=== PATIENT | female | born 1955 | race African-American/Black ===

== ENCOUNTER 2025-01-06 09:40 | Emergency (ER) | payer OTHER, SELFPAY ==
--- OUTSIDE RECORDS SUMMARY | 2024-12-09 05:15 | XMS_ITS ---
Author Organization [facility] in [place] Address [address] [place] [address] Care Team Providers Care Engineer First Assistant Name Role Phone Brandy Moulton Primary Care Provider Allergies Allergen (clinical drug ingredient) Drug/Non Drug Allergy documented on EMR Reaction Allergy Type Onset Date Status aspirin Aspirin Stomach upset Drug Allergy Act kyaw sulfamethoxazole / trimethoprim Bactrim Nausea/vomitin g Drug Allergy Active REASON FOR VISIT 2 weeks Medications Medication SIG (Take, Route, Frequency, Duration) Notes Start Date End Date Status Proventil HFA 108 (90 Base) MCG/ACT 2 puffs Inhalation every 4 hrs prn cough/SOB prn Unknown buPROPion HCl ER (XL) 300 MG 1 tablet in the morning Orally Once a day for 30 days prn 08/16/2020 Unknown Extra Depth Diabetic Shoe -- as directed -- Daily for 365 days 2 units, A5500, DX E11.42 10/28/2019 Unknown Heat Molded Inserts -- as directed -- Daily for 365 days 6 units, A5512, DX: E11.42 10/28/2019 Unknown Ibuprofen 600 MG 1 tablet with food or milk as needed Orally TID prn pain for 90 days PRN 02/18/2019 Active Lidocaine 4 % 1 application as needed Externally Three times a day for 7 days Apply under left arm and to upper back TID prn pain 11/17/2024 Active metFORMIN HCl 500 MG Take 2 tablets by mouth twice daily Orally bid for 90 days Active Rosuvastatin Calcium 5 MG 1 tablet Orall y Once a day for 30 days 07/28/2024 Active Rybelsus 7 MG 1 tablet at least 30 minutes before first food, beverage or other oral medicine of the day Orally Once a day for 30 days 10/25/2024 Active hydroCHLOROthiazide 25 MG Take 1 tablet by mouth once daily for 90 Active Pregabalin 25 MG 1-2 capsules Orally nightly for [address] gabapentin 12/09/2024 Active Allopurinol 300 MG 1 tablet Orally Once a day for 90 days Active Gabapentin 100 MG 1 capsule Orally BID for 30 days Decreased dose - 300mg makes her too sleepy 11/17/2024 Active HYDROcodone-Acetaminophen 5-325 MG 1 tablet as needed Orally BID prn severe pain for 7 days 12/09/2024 Active tiZANidine HCl 4 MG 1/2-1 tab Orally Nightly as needed for pain prn 11/17/2019 Unknown Gentamicin Sulfate 0.3 % 1 drop into affected eye Ophthalmic 4 times daily for 5 days 12/09/2024 Active Social History Tobacco Use: Social History Observation Description Date Details (start date - stop date) Never Smoker NA - NA Tobacco Use/Smoking Question Answer Notes Patient is a nonsmoker Vital Signs Weight 210.6 lbs 12/09/2024 Height 62 in 12/09/2024 Blood pressure systolic 130 mm Hg 12/10/19 25 Blood pressure diastolic 78 mm Hg 025 Heart Rate 98 /min 12/09/2024 Respiratory Rate 16 /min 12/09/2024 BMI 38.52 kg/m2 12/09/2024 Oximetry 98 % 12/09/2024 Encounters Encounter Location Date Provider Diagnosis [facility] [address] [place] [address] 12/09/2024 Brandy Moulton Type 2 diabetes mellitus with hyperglycemia, without long-term current use of insulin E11.65 ; Zoster with other complications B02.8 and Hordeolum externum left lower eyelid H00.015 Assessments Encounter Date Diagnosis (ICD Code) Assessment Notes Treatment Notes Treatment Clinical Notes Section Notes 12/09/2024 Type 2 diabetes mellitus with hyperglycemia, without long-term current use of insulin (ICD-10 - E11.65) Continue with metformin and rybelsus 12/09/2024 Zoster with other complications (ICD-10 - B02.8) Switch to lyrica since not feeling well with the gabapentin Will also provide a few more norco, to use mainly at night Continue other topicals 12/09/2024 Hordeolum externum left lower eyelid (ICD-10 - H00.015) garamycin drops, warm compresses Plan Of Treatment Medication Medication Name Sig Start Date Stop Date Notes Pregabalin 25 MG 1-2 capsules Orally nightly for 30 days 12/09/[address] gabapentin HYDROcodone-Acetaminop hen 5-325 MG 1 tablet as needed Orally BID prn severe pain for 7 days 12/09/2024 Gentamicin Sulfate 0.3 % 1 drop into affected eye Ophthalmic 4 times daily for 5 days 12/09/2024 Treatment Notes Assessment Notes Type 2 diabetes mellitus wit h hyperglycemia, without long-term current use of insulin Continue with metformin and rybelsus Zoster with other complications Switch to lyrica since not feeling well with the gabapentin Will also provide a few more norco, to use mainly at night Continue other topicals Hordeolum externum left lower eyelid gar amycin drops, warm compresses Next Appt Details Follow Up: 2-3 weeks, Reason : PHN, DM Provider Name:Brandy Campbell es, 01/12/2025 09:45:00 AM, [facility] [place], [address], Progress Notes * Michaela MORALES GDOB: (69 yo F)Acc No.[id number]:12/09/2024 Progress Note Patient: Michaela RADER Provider: Josh Moulton MD :1955 A ge:69 Y S ex:Female Date:12/09/2024 Address:[address] [place], [place] [id number] Check In:09:06 AM ESTCheck O ut:10:31 AM EST Subjective: * Chief Complaints: * 2 weeks * HPI: G eneral: patient presents today for a 2 week f/u, patient states she is still having alot of pain and she still has the rash but she says it is getting better, she now has a sti on her left eye. - Here for 2 week follow up of shingles pain - rash is drying well, but she still has so much pain! Burning pain, pins and needles feeling, still wakes her up at night. The meds help a little. Tried a shingles cream, which has helped some. Still throbbing feeling under her left arm/armpit. Pain comes in waves Takes pain med (norco) only at night, but continues on the gabapentin, as well as tylenol and ibu She was able to work full days this week, but it was stressful. She is frustrated that she still has so much pain, and it is still so intense. This is the 6th week -she still does not like how the gabapentin makes her feel - even the 100mg rather than the 300. I encouraged her to take the 100mg at night Also she has a stye on left lower lid - DM - she does feel like the Rybelsus helps with her appetite, and she is down 2 pounds. * ROS: G eneral/Constitutional: Chills d enies. F atigue d enies. F ever d enies. H EENT: Nasal congestion d enies. S ore throat d enies.?Runny Nose D enies. E ar Pain D enies. C ardiovascular: Lower Extremity Edema d enies. C hest pain d enies.?Palpitations d enies. R espiratory: Cough d enies. S hortness of breath d enies. W heezing d enies. G astrointestinal: Abdominal pain d enies. C onstipation d enies. D iarrhea d enies. N ausea d enies. G enitourinary: Urgency d enies. F requent urination d enies. P ainful urination d enies. M usculoskeletal: Body aches D enies. P ainful joints d enies. W eakness d enies. S kin: Rash d enies. N eurologic: Dizziness d enies. H eadache d enies. ? P sychiatric: Depression d enies. A nxiety d enies. D ifficulty sleeping d enies. * Active Problem List E11.65 Type 2 diabetes shakila itus with hyperglycemia, without long-term current use of insulin Modified On:08/30/2023W/U Status:confirmed E11.42 Type 2 diabetes shakila itus with diabetic polyneuropathy Modified On:12/26/2021 Status:confirmed I10 Essential hypertensi on Modified On:08/30/2023 Status:confirmed E78.2 Mixed hyperlipidemia Modified On:08/30/2023 Status:confirmed M54.42 Acute left-sided low back pain with left-sided sciatica Modified On:07/19/2020 Status:confirmed Z68.41 BMI 40.0-44.9, adult Modified On:07/31/2019 Status:confirmed M10.9 Gout, unspecified Modified On:01/30/2023 Status:confirmed B35.1 Tinea unguium Modified On:07/19/2019 Status:confirmed M20.42 Other hammer toe(s) (acquired), left foot Modified On:07/19/2019 Status:confirmed M20.41 Other hammer toe(s) (acquired), right foot Modified On:07/19/2019 Status:confirmed M10.9 Gout of foot, unspec ified cause, unspecified chronicity, unspecified laterality Modified On:06/13/2021 Status:confirmed J32.0 Chronic maxillary si nusitis Modified On:11/06/2022 Status:confirmed M47.819 Arthritis of low arely k Modified On:08/30/2023 Status:confirmed M17.0 Arthritis of both kn ees Modified On:01/08/2021 Status:confirmed E11.42 Diabetic peripheral neuropathy Modified On:11/06/2022 Status:confirmed F32.9 Depression, unspecif ied depression type Modified On:01/08/2021 Status:confirmed F41.9 Anxiety Modified On:04/10/2022 Status:confirmed F41.8 Depression with anxi ety Modified On:11/06/2022 Status:confirmed J30.2 Seasonal allergic rh initis, unspecified trigger Modified On:09/12/2021U Status:confirmed K08.89 Odontalgia Modified On:12/26/2021 Status:confirmed G89.29 Other chronic pain Modified On:08/04/2022W/U Status:confirmed N28.89 Renal mass, left Modified On:01/30/2023U Status:confirmed G47.30 Sleep-disordered tiffanie athing Modified On:11/06/2022/U Status:confirmed E66.01 Morbid (severe) obes ity due to excess calories Modified On:08/30/2023U Status:confirmed * Medical History: * Surgical History: T ubal ligation I&D Lt upper eyelid 03/05/18 * Hospitalization/Major Diagno stic Procedure: c hild * Family History: F ather: . M other: , diagnosed with Other malignant neoplasm of unspecified site, Unspecified heart disease, Unspecified polyarthropathy or polyarthritis, pelvic region and thigh. B rother(s): diagnosed with Diabetes mellitus without mention of complication, type II or unspecified type, not stated as uncontrolled, Unspecified heart disease. S ister(s): diagnosed with Unspecified heart disease. 4 brother(s) , 4 sister(s) . . Mother - Diabetic, Kidney issues, Leukemia, arthritis, heart disease. * Social History: T obacco Use: T obacco Use/Smoking P atient is a n onsmoker * Medications: T akingAllopurinol 300 MG Tablet 1 tablet Orally Once a day Gabapentin 100 MG Capsule 1 capsule Orally BID , Notes to Pharmacist: Decreased dose - 300mg makes her too sleepyhydroCHLOROthiazide 25 MG Tablet Take 1 tablet by mouth once daily HYDROcodone-Acetaminophen 5-325 MG Tablet 1 tablet as needed Orally BID prn severe pain Ibuprofen 600 MG Tablet 1 tablet with food or milk as needed Orally TID prn pain , Notes to Pharmacist: PRNLidocaine 4 % Cream 1 application as needed Externally Three times a day , Notes to Pharmacist: Apply under left arm and to upper back TID prn painmetFORMIN HCl 500 MG Tablet Take 2 tablets by mouth twice daily Orally bid Rosuvastatin Calcium 5 MG Tablet 1 tablet Orally Once a day Rybelsus(Semaglutide) 7 MG Tablet 1 tablet at least 30 minutes before first food, beverage or other oral medicine of the day Orally Once a day Taking Allopurinol 300 MG Tablet 1 tablet Orally Once a day Taking Gabapentin 100 MG Capsule 1 capsule Orally BID , Notes to Pharmacist: Decreased dose - 300mg makes her too sleepyTaking hydroCHLOROthiazide 25 MG Tablet Take 1 tablet by mouth once daily Taking HYDROcodone-Acetaminophen 5- 325 MG Tablet 1 tablet as needed Orally BID prn severe pain Taking Ibuprofen 600 MG Tablet 1 tablet with food or milk as needed Orally TID prn pain , Notes to Pharmacist: PRNTaking Lidocaine 4 % Cream 1 application as needed Externally Three times a day , Notes to Pharmacist: Apply under left arm and to upper back TID prn painTaking metFORMIN HCl 500 MG Tablet Take 2 tablets by mouth twice daily Orally bid Taking Rosuvastatin Calcium 5 MG Tablet 1 tablet Orally Once a day Taking Rybelsus(Semaglutide) 7 MG Tablet 1 tablet at least 30 minutes before first food, beverage or other oral medicine of the day Orally Once a day DiscontinuedGabapentin 300 MG Capsule 1 capsule Orally BID Discontinued Gabapentin 300 MG Capsule 1 capsule Orally BID UnknownbuPROPion HCl ER (XL) 300 MG Tablet Extended Release 24 Hour 1 tablet in the morning Orally Once a day , Notes to Pharmacist: prnExtra Depth Diabetic Shoe -- -- as directed -- Daily , Notes to Pharmacist: 2 units, A5500, DX E11.42Heat Molded Inserts -- -- as directed -- Daily , Notes to Pharmacist: 6 units, A5512, DX: E11.42Proventil HFA 108 (90 Base) MCG/ACT Aerosol Solution 2 puffs Inhalation every 4 hrs prn cough/SOB , Notes to Pharmacist: prntiZANidine HCl 4 MG Tablet 1/2-1 tab Orally Nightly as needed for pain , Notes to Pharmacist: prnMedication List reviewed and reconciled with the patientUnknown buPROPion HCl ER (XL) 300 MG Tablet Extended Release 24 Hour 1 tablet in the morning Orally Once a day , Notes to Pharmacist: prnUnknown Extra Depth Diabetic Shoe -- -- as directed -- Daily , Notes to Pharmacist: 2 units, A5500, DX E11.42Unknown Heat Molded Inserts -- -- as directed -- Daily , Notes to Pharmacist: 6 units, A5512, DX: E11.42Unknown Proventil HFA 108 (90 Base) MCG/ACT Aerosol Solution 2 puffs Inhalation every 4 hrs prn cough/SOB , Notes to Pharmacist: prnUnknown tiZANidine HCl 4 MG Tablet 1/2-1 tab Orally Nightly as needed for pain , Notes to Pharmacist: prnMedication List reviewed and reconciled with the patient * Allergies: B actrim: Nausea/vomiting - Side EffectsAspirin: Stomach upset - Side Effectsno[Allergies Verified] Objective: * Vitals: W t:210.6lbs, Ht: 62 in, BP:130/78mm Hg, HR:98/min, RR:16/min, BMI:38.52Index, Oxygen sat %:98%, Ht-cm: 157.48 cm, Wt-k.53 kg. * Examination: G eneral Examination: GENERAL APPEARANCE: N o acute distress, Well hydrated, Well Developed. NECK: N johnnie supple, No thyromegaly, No cervical LAD. LUNGS: C lear to auscultation bilaterally, No wheezes, rales, rhonchi. CARDIO: R egular rate and rhythm, No murmurs, rubs, gallops. ABDOMEN: S oft, nontender, not distended, normal bowel sounds. SKIN: E rythematous rash has dried up under left arm and on upper left back, but still has pain. EXTREMITIES: No edema. NEUROLOGIC/PSYCHIATRIC: A lert, Oriented,mood and affect appropriate. Assessment: * Assessment: 1. Z severo with other complications - B02.8 (Primary) 2 . T ype 2 diabetes mellitus with hyperglycemia, without long-term current use of insulin - E11.65 3 .?Hordeolum externum left lower eyelid - H00.015 Plan: * Treatment: 2. T ype 2 diabetes mellitus with hyperglycemia, without long-term current use of insulin Notes: Continue with metformin and rybelsus 3. H ordeolum externum left lower eyelid Start Gentamicin Sulfate Solution, 0.3 %, 1 drop into affected eye, Ophthalmic, 4 times daily, 5 days, 1, Refills 0. Notes: garamycin drops, warm compresses * Procedure Codes: * Follow Up: 2 -3 weeks (Reason: PHN, DM) * * Sign off status: Completed Visit Status: C HK (Check Out) true * Provider: Josh Moulton MD Date: 0 12/09/2024 Generated for Keshia zavala/Riana/Jessicaitting on: 0 01/06/2025 09:52 AM EDT History and Physical Notes * Examination Category Sub-Category Detail Notes Category Not es General Examination GENERAL APPEARANCE: No acute distress, Well hydrated, Well Developed NECK: Neck supple, No thyr omegaly, No cervical LAD CARDIO: Regular rate and rhy thm, No murmurs, rubs, gallops LUNGS: Clear to auscultatio n bilaterally, No wheezes, rales, rhonchi ABDOMEN: Soft, nontender, not distended, normal bowel sounds SKIN: Erythematous rash case s dried up under left arm and on upper left back, but still has pain EXTREMITIES: No edema ENMT: NEUROLOGIC/PSYCHIATRIC: Alert, Oriented, mood and affect appropriate
--- OUTSIDE RECORDS SUMMARY | 2024-12-22 05:00 | XMS_ITS ---
Author Organization [facility] in [place] Address [address] [place] [address] Care Team Providers Care Early Interventionist Name Role Phone Brandy Moulton Primary Care Provider [phone] REASON FOR VISIT -2 Week Follow Up- Encounters Encounter Location Date Provider Diagnosis [facility] [address] [place] [address] 12/22/2024 Brandy Moulton Plan Of Treatment Next Appt Details Provider Name:Brandy Campbell es, 01/12/2025 09:45:00 AM, [address] [place], [address], Progress Notes * Michaela MORALES GDOB: [birth year] (69 yo F)Acc No.[id number]:12/22/2024 UNLOCKED PROGRESS NOTE Established Patient: Colten GRANADO Michaela Maria Ines Provider: Josh Moulton MD :1955 A ge:69 Y S ex:Female Date:12/22/2024 Address:[address] [place], [place] [id number] Subjective: * Chief Complaints: * 1 . -2 Week Follow Up-. * Medical History: Objective: * Vitals: Assessment: Plan: * Treatment: * * Electronic signature of Narciso Moulton MD, [id number] on 01/06/2025 at 09:52 AM EDT Sign off status: Pending Visit Status: R /S (Rescheduled) * Provider: Josh Moulton MD Date: 0 12/22/2024 Generated for Keshia zavala/Riana/Nova on: 0 01/06/2025 09:52 AM EDT
--- OUTSIDE RECORDS SUMMARY | 2024-12-23 06:30 | XMS_ITS ---
Author Organization [facility] in [place] Address [address] [place] [address] Care Team Providers Care Commodity Manager Name Role Phone MoultonBrandy bush Primary Care Provider Allergies Allergen (clinical drug ingredient) Drug/Non Drug Allergy documented on EMR Reaction Allergy Type Onset Date Status aspirin Aspirin Stomach upset Drug Allergy Act kyaw sulfamethoxazole / trimethoprim Bactrim Nausea/vomitin g Drug Allergy Active REASON FOR VISIT -2 Week Follow Up- Medications Medication SIG (Take, Route, Frequency, Duration) Notes Start Date End Date Status buPROPion HCl ER (XL) 300 MG 1 tablet in the morning Orally Once a day for 30 days prn 08/16/2020 Unknown Extra Depth Diabetic Shoe -- as directed -- Daily for 365 days 2 units, A5500, DX E11.42 10/28/2019 Unknown Heat Molded Inserts -- as directed -- Daily for 365 days 6 units, A5512, DX: E11.42 10/28/2019 Unknown Proventil HFA 108 (90 Base) MCG/ACT 2 puffs Inhalation every 4 hrs prn cough/SOB prn Unknown tiZANidine HCl 4 MG 1/2-1 tab Orally Nightly as needed for pain prn 11/17/2019 Unknown Lidocaine 4 % 1 application as needed Externally Three times a day for 7 days Apply under left arm and to upper back TID prn pain 11/17/2024 Active metFORMIN HCl 500 MG Take 2 tablets by mouth twice daily Orally bid for 90 days Active Pregabalin 25 MG 1-2 capsules Orally nightly for [address] of gabapentin 12/09/2024 Active Rosuvastatin Calcium 5 MG 1 tablet Orall y Once a day for 30 days 07/28/2024 Active Rybelsus 7 mg TAKE ONE TABLET BY MOUTH EVERY MORNING AT least 30 MINUTES BEFORE first food beverage OR other oral MEDICATION OF THE DAY for 30 Active Ibuprofen 600 MG 1 tablet with food or milk as needed Orally TID prn pain for 90 days PRN 02/18/2019 Active Gentamicin Sulfate 0.3 % 1 drop into affected eye Ophthalmic 4 times daily for 5 days 12/09/2024 Active hydroCHLOROthiazide 25 MG Take 1 tablet by mouth once daily for 90 Active HYDROcodone-Acetaminophen 5-325 MG 1 tablet as needed Orally BID prn severe pain for 7 days 12/09/2024 Active Allopurinol 300 MG 1 tablet Orally Once a day for 90 days Active Social History Tobacco Use: Social History Observation Description Date Details (start date - stop date) Never Smoker NA - NA Tobacco Use/Smoking Question Answer Notes Patient is a nonsmoker Vital Signs Weight 213.6 lbs 12/23/2024 Height 62 in 12/23/2024 Blood pressure systolic 110 mm Hg 12/24/19 25 Blood pressure diastolic 82 mm Hg 025 Heart Rate 95 /min 12/23/2024 Respiratory Rate 16 /min 12/23/2024 BMI 39.06 kg/m2 12/23/2024 Oximetry 92 % 12/23/2024 weight up 3 pounds, BP stabl e Encounters Encounter Location Date Provider Diagnosis [facility] [address] [place] [address] 12/23/2024 Brandy Moulton Type 2 diabetes mellitus with hyperglycemia, without long-term current use of insulin E11.65 ; Zoster with other complications B02.8 and Hordeolum externum left lower eyelid H00.015 Assessments Encounter Date Diagnosis (ICD Code) Assessment Notes Treatment Notes Treatment Clinical Notes Section Notes 12/23/2024 Type 2 diabetes mellitus with hyperglycemia, without long-term current use of insulin (ICD-10 - E11.65) Continue current meds and keep watching your diet closely! 12/23/2024 Zoster with other complications (ICD-10 - B02.8) Encouraged pt to take the lyrica to help with the actual nerve pain!!! It is a very low dose and will only be for a few more weeks! -ok to continue alternating the tylenol and ibuprofen as well. -really limit the norco 12/23/2024 Hordeolum externum left lower eyelid (ICD-10 - H00.015) Nearly resolved Plan Of Treatment Treatment Notes Assessment Notes Type 2 diabetes mellitus wit h hyperglycemia, without long-term current use of insulin Continue current meds and keep watching your diet closely! Zoster with other complications Encouraged pt to take the lyrica to help with the actual nerve pain!!! It is a very low dose and will only be for a few more weeks! -ok to continue alternating the tylenol and ibuprofen as well. -really limit the norco Hordeolum externum left lower eyelid Marita rly resolved Next Appt Details Follow Up: 3 weeks, Reason: recheck PHN Provider Name:Brandy Campbell es, 01/12/2025 09:45:00 AM, [address] [place], [address], Progress Notes * Michaela MORALES GDOB: (69 yo F)Acc No.[id number]:12/23/2024 Established Patient: Colten GRANADO Michaela Maria Ines Provider: Josh Moulton MD :[id number] A ge:69 Y S ex:Female Date:12/23/2024 Address:[address] [place], [place] [id number] Check In:10:29 AM ESTCheck O ut:11:40 AM EST Subjective: * Chief Complaints: * - 2 Week Follow Up- * HPI: G eneral: Patient presents today for 2 week follow up.-MV Doing a little better. She has changed to tylenol rapid release gels during the day. She is finally able to sleep - slept in the recliner after the last appt! Sometimes she actually has times without pain! She was able to go to her class reunion activities.She has been able to get back to protestant, and bible study on Tuesdays Encouarged her take the lyrica nightly to help with the nerve pain! She has been working full days at work, and she does feel like it distracts her. 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 8 years in [place], 10 years in [employer] She is thinking about retiring in April rather than waiting until age 71. Hoever, sometimes worse in her left breast - under arm still hurts. She thinks she got a new spot, because it is still burning just behind armpit She takes 1/2 of norco if the pain is severe, mainly at night. Has not really been taking the lyrica DM - sugars improved with rybelsus. * ROS: G eneral/Constitutional: Chills d enies. [...] without long-term current use of insulin Modified On:08/30/2023U Status:confirmed E11.42 Type 2 diabetes shakila itus with diabetic polyneuropathy Modified On:12/26/2021 Status:confirmed I10 Essential hypertensi on Modified On:08/30/2023U Status:confirmed E78.2 Mixed hyperlipidemia Modified On:08/30/2023U Status:confirmed M54.42 Acute left-sided low back pain [...] Seasonal allergic rh initis, unspecified trigger Modified On:09/12/2021 Status:confirmed K08.89 Odontalgia Modified On:12/26/2021 Status:confirmed G89.29 Other chronic pain Modified On:12/26/2021 Status:confirmed N28.89 Renal mass, left Modified On:01/30/2023 Status:confirmed G47.30 Sleep-disordered tiffanie athing Modified On:11/06/2022U Status:confirmed E66.01 Morbid (severe) obes ity due to excess calories Modified On:08/30/2023W/U Status:confirmed * Medical History: * Surgical History: [...] Tablet 1 tablet Orally Once a day Gentamicin Sulfate 0.3 % Solution 1 drop into affected eye Ophthalmic 4 times daily hydroCHLOROthiazide 25 MG Tablet Take 1 tablet [...] tablets by mouth twice daily Orally bid Pregabalin 25 MG Capsule 1-2 capsules Orally nightly , Notes to Pharmacist: In place of gabapentinRosuvastatin Calcium 5 MG Tablet 1 tablet Orally Once a day Rybelsus(Semaglutide) 7 mg Tablet TAKE ONE TABLET BY MOUTH EVERY MORNING AT least 30 MINUTES BEFORE first food beverage OR other oral MEDICATION OF THE DAY Taking Allopurinol 300 MG Tablet 1 tablet Orally Once a day Taking Gentamicin Sulfate 0.3 % Solution 1 drop into affected eye Ophthalmic 4 times daily Taking hydroCHLOROthiazide 25 MG Tablet Take 1 tablet by mouth once daily Taking HYDROcodone-Acetaminophen 5-325 MG Tablet 1 tablet as [...] by mouth twice daily Orally bid Taking Pregabalin 25 MG Capsule 1-2 capsules Orally nightly , Notes to Pharmacist: In place of gabapentinTaking Rosuvastatin Calcium 5 MG Tablet 1 tablet Orally Once a day Taking Rybelsus(Semaglutide) 7 mg Tablet TAKE ONE TABLET BY MOUTH EVERY MORNING AT least 30 MINUTES BEFORE first food beverage OR other oral MEDICATION OF THE DAY DiscontinuedGabapentin 100 MG Capsule 1 capsule Orally BID , Notes to Pharmacist: Decreased dose - 300mg makes her too sleepyDiscontinued Gabapentin 100 MG Capsule 1 capsule Orally BID , Notes to Pharmacist: Decreased dose - 300mg makes her too sleepyUnknownbuPROPion HCl ER (XL) 300 MG Tablet Extended [...] Side Effectsno[Allergies Verified] Objective: * Vitals: W t:213.6lbs, Ht: 62 in, BP:110/82mm Hg, HR:95/min, RR:16/min, BMI:39.06Index, Oxygen sat %:92%, Ht-cm: 157.48 cm, Wt-k.89 kg. weight up 3 pounds, BP stable. * Examination: G eneral Examination: GENERAL APPEARANCE: N o acute distress, Well hydrated, Well Developed. NECK: N johnnie supple, No thyromegaly, No cervical LAD. LUNGS: C lear to auscultation bilaterally, No wheezes, rales, rhonchi. CARDIO: R egular rate and rhythm, No murmurs, rubs, gallops. ABDOMEN: S oft, nontender, not distended, normal bowel sounds. SKIN: R adrien has completely dried up under left arm and on upper left back, but does have circular flesh colored spot, slightly raised, just behind left arm, behind axilla which she is concerned may be a new blister coming - NO! It is not erythematous and has likely been there for awhile, but just more noticeable now that the other rash is completely dried up. Still with nerve pain from that area down left side and into left axilla, and still occasionally on top of left breast.. EXTREMITIES: No edema. NEUROLOGIC/PSYCHIATRIC: A lert, Oriented,mood [...] long-term current use of insulin Notes: Continue current meds and keep watching your diet closely! 3. H ordeolum externum left lower eyelid Notes: Nearly resolved * Procedure Codes: * Follow Up: 3 weeks (Reason: recheck PHN) * * Sign off status: Completed Visit Status: C HK (Check Out) true * Provider: Josh Moulton MD Date: 12/23/2024 Generated for Keshia zavala/Riana/Jessicaitting on: 01/06/2025 09:52 AM EDT History and Physical [...] nontender, not distended, normal bowel sounds SKIN: Rash has completely dried up under left arm and on upper left back, but does have circular flesh colored spot, slightly raised, just behind left arm, behind axilla which she is concerned may be a new blister coming - NO! It is not erythematous and has likely been there for awhile, but just more noticeable now that the other rash is completely dried up. Still with nerve pain from that area down left side and into left axilla, and still occasionally on top of left breast. EXTREMITIES: No edema ENMT: NEUROLOGIC/PSYCHIATRIC: Alert, Oriented, mood and affect appropriate
[2025-01-06] VITALS (21 sets, daily range): BP systolic 81–143; BP diastolic 67–90; PULSE 92–194; TEMP 37.2; O2SAT 98–100; BMI 39.7
--- NOTE | 2025-01-06 09:52 | ECG_ITS ---
[facility] Test Date: 2025-01-06 Pat Name: CANDELARIA SANDERSON Department: Room: - Gender: Female Stemmer Machine: : 1955 Requested By: 1030 Order Number: [id number] Reading MD: DASH JOHNSON M.D. Measurements Intervals [place] Rate: 194 P: -64377 [place]: -59216 QRS: -56 QRSD: 108 T: 76 QT: 308 QTc: 406 Interpretive Statements SUPRAVENTRICULAR TACHYCARDIA 2630 Left anterior fascicular block 5234 Left ventricular hypertrophy with repolarization abnormality 9150 abnormal ECG No previous ECG available for comparison Electronically Signed On 01-06-2025 20:55:48 EDT by DASH JOHNSON M.D.
--- NOTE | 2025-01-06 09:52 | XR_ITS ---
The [place] [id number] Patient Name: CANDELARIA SANDERSON MRN: [id number] date: 1955 Sex: F Assigned Patient Location: ED.MAIN Current Patient Location: ED.MAIN Accession/Order Number: [id number] Exam Date: 01/06/2025 11:08 Report Date: 01/06/2025 11:16 At the request of: THERON ROSSI MD Procedure: XR chest 1V Single view chest: CLINICAL HISTORY: tachy COMPARISON: None FINDINGS: The heart is normal in size. The lungs are clear. The pulmonary vasculature is normal. Mediastinum and hilar regions are unremarkable. No pleural effusions are seen. Visualized bones are intact. XR/XR chest 1V IMPRESSION: NEGATIVE CHEST. Impression dictated by: Cliff Wilkinson Jr., D.OLuis Enrique 01/06/2025 11:16 AM Dictation Location: [place] [address] Electronically authenticated by: [id number] Y Date: 01/06/2025 11:16
--- OUTSIDE RECORDS SUMMARY | 2025-01-06 09:52 | XMS_ITS | Patient Health Record ---
Author Organization [facility] [place] Address [address] [place] [address] Care Team Providers Care Buffet Server Name Role Phone Bradny Moulton Primary Care Provider Provider, Lab Unavailable [phone] Allergies Allergen (clinical drug ingredient) Drug/Non Drug Allergy documented on EMR Reaction Allergy Type Onset Date Status aspirin Aspirin Stomach upset Drug Allergy Act kyaw sulfamethoxazole / trimethoprim Bactrim Nausea/vomitin g Drug Allergy Active Results Component Value Reference Range Notes HEMOGLOBIN A1C - IN OFFICE Reviewed date:04/29/2024 08:06:24 AM Interpretation:7.1 Performing Lab: Notes/Report: 7.1 HEMOGLOBIN A1C - IN OFFICE 7.1 4.4 - 6.4 HEMOGLOBIN A1C - IN OFFICE Reviewed date:11/03/2024 09:02:05 AM Interpretation:8.3 Performing Lab: Notes/Report: 8.3 HEMOGLOBIN A1C - IN OFFICE 8.3 4.4 - 6.4 URIC ACID Reviewed date:07/28/2024 10:42:09 AM Interpretation: Performing Lab:[facility], [address] [place], [address] Notes/Report: [place] [employer] [facility] FACILITY: [facility] [id number] URIC ACID 5.7 (2.5 - 6.2) MG/DL MICROALBUMIN with ALB/CREAT RATIO, URINE (MALB)) Reviewed date:07/28/2024 10:42:09 AM Interpretation: Performing Lab:[facility], [address] [place], [address] [phone] Notes/Report: REF RANGE : ALB/CREAT RATIO NORMAL = 0 - 13 MG/G CREAT BORDERLINE = 14 - 30 MG/G CREAT ABNORMAL = >30 MG/G CREAT [facility] FACILITY: [facility] [id number] URINE COLLECTION RANDOM ( - NOTED) URINE CREAT 59.8 () MG/DL MICRO ALB, UR 0.89 (0.0 - 1.70) MG/DL ALB/CREAT RATIO 14.9 (0.0 - 30.0) MG/G CR CBC WITH DIFF Reviewed date:07/28/2024 10:42:09 AM Interpretation: Performing Lab:[facility], [address], [place], [address] [phone] Notes/Report: [facility] FACILITY: [facility] [id number] WBC 8.29 (3.80 - 10.60) x10^3ul RBC 5.29 (4.20 - 5.40) x10^6ul HEMOGLOBIN 14.1 (12.0 - 16.0) G/DL HEMATOCRIT 45.1 (37.0 - 47.0) % MCV 85.3 (81.0 - 99.0) fl MCH 26.7 (27.0 - 33.0) PG MCHC 31.3 (30.0 - 37.0) G/DL RDW-SD 43.1 (37.0 - 49.0) fl PLT 335 (130 - 400) x10^3ul SEGS 59.1 () % LYMPS 31.6 () % MONOS 5.3 () % EOSINOPHIL 3.0 () % BASOS 0.5 () % IMMATURE GRANS (IG) 0.5 () % ABS NEUTROPHIL 4.90 (1.50 - 7.00) x10^3ul ABS LYMPHOCYTE 2.62 (0.96 - 5.40) x10^3ul ABS MONOCYTE 0.44 (0.10 - 1.00) x10^3ul ABS EOSINOPHIL 0.25 (0.00 - 0.40) x10^3ul ABS BASOPHIL 0.04 (0.00 - 0.16) x10^3ul ABS IMMATURE GRANS 0.04 (0.00 - 0.11) x10^3ul LIPID PANEL (CHOL/TRIG/HDL/L DL) Reviewed date:07/28/2024 10:42:09 AM Interpretation: Performing Lab:[facility], [address] [place], [address] [phone] Notes/Report: CHOL REFERENCE RANGE: DESIRABLE: < 200 MG/DL BORDERLINE: 200 - 239 MG/DL HIGH RISK: > 240 MG/DL HDL REFERENCE RANGE: DESIRABLE: >45 MG/DL BORDERLINE: 32 - 45 MG/DL HIGH RISK: < 32 MG/DL LDL REFERENCE RANGE: DESIRABLE: < 130 MG/DL BORDERLINE: 130 - 159 MG/DL HIGH RISK: > 160 MG/DL CHOL-HDL RATIO: MALE: LOW RISK : 0 - 5.0, MOD RISK: 5.1 - 9.6, HIGH RISK: > 9.6 FEMALE: LOW RISK : 0 - 4.4, MOD RISK: 4.5 - 7.1, HIGH RISK: > 7.1 [facility] FACILITY: [facility] [id number] CHOLESTEROL 235 (120 - 200) MG/DL TRIGLYCERIDES 286 (30 - 150) MG/DL HDL 52 (40.0 - 60.0) MG/DL LDL (CALC) 126 (0 - 130) MG/DL VLDL 57 (7 - 46) MG/DL CHOL-HDL RATIO 4.5 (0.0 - 4.4) HEMOGLOBIN A1C - IN OFFICE Reviewed date:01/14/2024 09:23:15 AM Interpretation:8.3 Performing Lab: Notes/Report: 8.3 HEMOGLOBIN A1C - IN OFFICE 8.3 4.4 - 6.4 CMP (COMP MET SALINAS) w/eGFR CK D-EPI Reviewed date:07/28/2024 10:42:09 AM Interpretation: Performing Lab:[facility], [address] [place], [address] [phone] Notes/Report: [facility] FACILITY: [facility] [id number] GLUCOSE 142 (74 - 106) MG/DL BUN 22 (4 - 25) MG/DL CREATININE, BLOOD 0.72 (0.52 - 1.04) MG/DL GFR by CKD-EPI 91.0 (60.0) ML/M1.7 SODIUM 139 (137 - 145) MMOL/L POTASSIUM 4.4 (3.5 - 5.1) MMOL/L CHLORIDE 105 (98 - 107) MMOL/L CARBON DIOXIDE 27 (22 - 30) MMOL/L CALCIUM 10.5 (8.6 - 10.6) MG/DL ALBUMIN 4.5 (3.5 - 5.0) G/DL TOTAL PROTEIN 8.1 (6.3 - 8.2) G/DL ALK PHOS 87 (38 - 126) U/L ALT (SGPT) 23 (1 - 35) U/L AST (SGOT) 29 (15 - 46) U/L BILIRUBIN, TOT 0.8 (0.2 - 1.3) MG/DL Reason For Referral No Information Medications Medication SIG (Take, Route, Frequency, Duration) Notes Start Date End Date Status Ibuprofen 600 MG 1 tablet with food [...] MEDICATION OF THE DAY for 30 Active Allopurinol 300 MG 1 tablet Orally Once a day for 90 days Active buPROPion HCl ER (XL) 300 MG 1 tablet in the morning Orally Once a day for 30 days prn 08/16/2020 Unknown Extra Depth Diabetic Shoe -- as directed -- Daily for 365 days 2 units, A5500, DX E11.42 10/28/2019 Unknown Gentamicin Sulfate 0.3 % 1 drop into affected eye Ophthalmic 4 times daily for 5 days 12/09/2024 Active Heat Molded Inserts -- as directed -- Daily for 365 days 6 units, A5512, DX: E11.42 10/28/2019 Unknown hydroCHLOROthiazide 25 MG Take 1 tablet by mouth once daily for 90 Active Proventil HFA 108 (90 Base) MCG/ACT 2 puffs Inhalation every 4 hrs prn cough/SOB prn Unknown HYDROcodone-Acetaminophen 5-325 MG 1 tablet as needed Orally BID prn severe pain for 7 days 12/09/2024 Active tiZANidine HCl 4 MG 1/2-1 tab Orally Nightly as needed for pain prn 11/17/2019 Unknown Immunizations Vaccine Route Administration Date Status Comme nts SARS-COV-2 (COVID 19 Pfizer 30mcg/0.3mL) Unknown 09/05/2020 Administered SARS-COV-2 (COVID 19 Pfizer 30mcg/0.3mL) Unknown 09/27/2020 Administered SARS-COV-2 (COVID 19 Pfizer Booster 0.3mL) Unknown 05/02/2021 Administered Social History Tobacco Use: Social History Observation Description Date Details (start date - stop date) Never Smoker NA - NA Tobacco Use/Smoking Question Answer Notes Patient is a nonsmoker Alcohol Screen (Audit-C) Question Answer Notes Did you have a drink containing alcohol in the p ast year? No Points 0 Interpretation Negative Problems Problem Type SNOMED Code ICD Code Onset Dates Problem Status W/U Status Risk Notes Problem 203827271 Tinea unguium (B35.1) Active confirmed Problem 82921696 Type 2 diabetes mellitus with diabetic polyneuropathy (E11.42) Active confirmed Problem 723365960 Morbid (severe) obesity due to excess calories (E66.01) Active confirmed Problem 484977085 Mixed hyperlipidemia (E78.2) Active confirmed Problem 30812777 Other chronic pain (G89.29) Active confirmed Problem 23366088 Chronic maxillar y sinusitis (J32.0) Active confirmed Problem Gout (50555246) Gout, unspecifie d (M10.9) Active confirmed Problem 642740280 Diabetic peripheral neuropathy (E11.42) Active confirmed Problem 93833270 Anxiety (F41.9) Active confirmed Problem 52479055 Essential hypertension (I10) Active confirmed Problem 759668034 Depression with anxiety (F41.8) Active confirmed Problem Acquired hammer toe of right foot (0434637603453250) Other hammer toe(s) (acquired), right foot (M20.41) Active confirmed Problem Acquired hammer toe of left foot (2160929385897148) Other hammer toe(s) (acquired), left foot (M20.42) Active confirmed Problem 442965774 Sleep-disordered breathing (G47.30) Active confirmed Problem 32971737 Gout of foot, unspecified cause, unspecified chronicity, unspecified laterality (M10.9) Active confirmed Problem 396871043 Renal mass, left (N28.89) Active confirmed Problem 284074575 BMI 40.0-44.9, adult (Z68.41) Active confirmed Problem 568392802 Arthritis of low back (M47.819) Active confirmed Problem 30402799 Depression, unspecified depression type (F32.9) Active confirmed Problem 99914178 Type 2 diabetes mellitus with hyperglycemia, without long-term current use of insulin (E11.65) Active confirmed Problem 425009208 Acute left-sided low back pain with left-sided sciatica (M54.42) Active confirmed Problem Odontalgia (00283341) Odontalgia (K08.89) Active confirmed Problem 1195433681585931 Arthritis of tad th knees (M17.0) Active confirmed Problem 922600246 Seasonal allergi c rhinitis, unspecified trigger (J30.2) Active confirmed Vital Signs Heart Rate 95 /min 12/23/2024 weight up 3 ramon nds, BP stable Respiratory Rate 16 /min 12/23/2024 weight up 3 pounds, BP stable Blood pressure diastolic 82 mm Hg 12/23/2024 little ght up 3 pounds, BP stable Oximetry 92 % 12/23/2024 weight up 3 ramon nds, BP stable Height 62 in 12/23/2024 weight up 3 ramon nds, BP stable Blood pressure systolic 110 mm Hg 12/23/2024 weig ht up 3 pounds, BP stable Weight 213.6 lbs 12/23/2024 weight up 3 ramon nds, BP stable BMI 39.06 kg/m2 12/23/2024 weight up 3 ramon nds, BP stable Encounters Encounter Location Date Provider Diagnosis [facility] [address] [place] [address] 12/23/2024 Brandy Saige Type 2 diabetes mellitus with hyperglycemia, without long-term current use of insulin E11.65 ; Zoster with other complications B02.8 and Hordeolum externum left lower eyelid H00.015 [facility] [address] [place] [address] 11/03/2024 Brandy Moulton Type 2 diabetes mellitus with hyperglycemia, without long-term current use of insulin E11.65 and Zoster with other complications B02.8 [facility] [address] [place] [address] 01/14/2024 Brandyher Moulton Type 2 diabetes mellitus with hyperglycemia, without long-term current use of insulin E11.65 ; Essential hypertension I10 ; Mixed hyperlipidemia E78.2 and Morbid (severe) obesity due to excess calories E66.01 [facility] [address] [place] [address] 04/28/2024 Brandyher Moulton Type 2 diabetes mellitus with hyperglycemia, without long-term current use of insulin E11.65 ; Essential hypertension I10 ; Mixed hyperlipidemia E78.2 and Chronic maxillary sinusitis J32.0 [facility] [address] [address] 07/01/2024 Lab Provider [facility] [address] [place] [address] 10/25/2024 Brandy Moulton Zoster without complications B02.9 and Type 2 diabetes mellitus with diabetic polyneuropathy E11.42 [facility] [address] [place] [address] 07/28/2024 Brandy Moulton Type 2 diabetes mellitus with diabetic polyneuropathy E11.42 ; Encounter for general adult medical examination without abnormal findings Z00.00 ; Essential hypertension I10 and Mixed hyperlipidemia E78.2 [facility] [address] [place] [address] 11/17/2024 Brandy Moulton Type 2 diabetes mellitus with hyperglycemia, without long-term current use of insulin E11.65 and Zoster with other complications B02.8 [facility] [address] [place] [address] 12/09/2024 Brandy Moulton Type 2 diabetes mellitus with hyperglycemia, without long-term current use of insulin E11.65 ; Zoster with other complications B02.8 and Hordeolum externum left lower eyelid H00.015 [facility] [address] [place] [address] 01/15/2024 Brandy Moulton [facility] [address] [place] [address] 01/20/2024 Brandy Moulton Gout, unspecified M1 0.9 and Mixed hyperlipidemia E78.2 [facility] [address] [place] [address] 02/16/2024 [facility] [address] [place] [address] 04/28/2024 Brandyher Moulton Encounter for genera l adult medical examination without abnormal findings Z00.00 ; Type 2 diabetes mellitus with diabetic polyneuropathy E11.42 and Gout of foot, unspecified cause, unspecified chronicity, unspecified laterality M10.9 [facility] [address] [place] [address] 08/01/2024 Brandyher Moulton Type 2 diabetes mellitus with hyperglycemia, without long-term current use of insulin E11.65 [facility] [address] [place] [address] 08/30/2024 Brandy [place] [address] [place] [address] 09/16/2024 Brandyher Moulton Gout, unspecified M1 0.9 [facility] [address] [place] [address] 11/03/2024 Brandyher Moulton [facility] [address] [place] [address] 12/05/2024 Brandyher Moulton Zoster with other complications B02.8 Assessments Encounter Date Diagnosis (ICD Code) Assessment Notes Treatment Notes Treatment Clinical Notes Section Notes 01/14/2024 Type 2 diabetes mellitus with hyperglycemia, without long-term current use of insulin (ICD-10 - E11.65) A1c is about the same at 8.3. Continue metformin 2 twice daily Will ADD jardiance 25mg daily (start 10mg daily for the first week- sample pack given) Consider ozempic in the future 04/28/2024 Type 2 diabetes mellitus with hyperglycemia, without long-term current use of insulin (ICD-10 - E11.65) A1c is down to 7.1!!! Continue jardiance and metformin 04/28/2024 Essential hypertension (ICD-10 - I10) BP is actually great!!! Continue current meds Call if you are having any more dizzy episodes 07/28/2024 Type 2 diabetes mellitus with diabetic polyneuropathy (ICD-10 - E11.42) unable to get A1c machine to work today but with her home numbers all around 150, ok to decrease to the jardiance 10mg 07/28/2024 Encounter for general adult medical examination without abnormal findings (ICD-10 - Z00.00) 11/03/2024 Type 2 diabetes mellitus with hyperglycemia, without long-term current use of insulin (ICD-10 - E11.65) A1c is up to 8.3, so we really need to add the rybelsus!! Still waiting on prior auth for rybelsus Will give another sample of rybelsus for now 11/03/2024 Zoster with other complications (ICD-10 - B02.8) Start gabapentin 300mg BID for the next 2 weeks to help with neuropathy pain May need to be off work next week Also refill of ibuprofen 10/25/2024 Zoster without complications (ICD-10 - B02.9) Valtrex TID for 7 days Continue with tylenol and motrin as needed for pain 10/25/2024 Type 2 diabetes mellitus with diabetic polyneuropathy (ICD-10 - E11.42) Scrpt for rybelsus, to help control sugars. -pt did not tolerate the jardiance due to continuous vaginal itching 11/17/2024 Type 2 diabetes mellitus with hyperglycemia, without long-term current use of insulin (ICD-10 - E11.65) Continue rybelsus every morning to help get sugars controlled. Will need 90 day supply to mail 12/09/2024 Type 2 diabetes mellitus with hyperglycemia, without long-term current use of insulin (ICD-10 - E11.65) Continue with metformin and rybelsus 12/09/2024 Zoster with other complications (ICD-10 - B02.8) Switch to lyrica since not feeling well with the gabapentin Will also provide a few more norco, to use mainly at night Continue other topicals 01/20/2024 Gout, unspecified (ICD-10 - M10.9) 12/23/2024 Type 2 diabetes mellitus with hyperglycemia, [...] ibuprofen as well. -really limit the norco 04/28/2024 Encounter for general adult medical examination without abnormal findings (ICD-10 - Z00.00) 04/28/2024 Type 2 diabetes mellitus with diabetic polyneuropathy (ICD-10 - E11.42) 08/01/2024 Type 2 diabetes mellitus with hyperglycemia, without long-term current use of insulin (ICD-10 - E11.65) 09/16/2024 Gout, unspecified (ICD-10 - M10.9) 12/05/2024 Zoster with other complications (ICD-10 - B02.8) 04/28/2024 Gout of foot, unspecified cause, unspecified chronicity, unspecified laterality (ICD-10 - M10.9) 12/23/2024 Hordeolum externum left lower eyelid (ICD-10 - H00.015) Nearly resolved 01/20/2024 Mixed hyperlipidemia (ICD-10 - E78.2) 12/09/2024 Hordeolum externum left lower eyelid (ICD-10 - H00.015) garamycin drops, warm compresses 11/17/2024 Zoster with other complications (ICD-10 - B02.8) Will try lower dose of gabapentin - 100mg BID Also will send lidocaine cream Would like a few katy to have for night time 07/28/2024 Essential hypertension (ICD-10 - I10) 04/28/2024 Mixed hyperlipidemia (ICD-10 - E78.2) Ok to continue on the pravastatin 1/2 tablet. Please check fasting labs in the next week 01/14/2024 Essential hypertension (ICD-10 - I10) BP is stable, continue current med 01/14/2024 Mixed hyperlipidemia (ICD-10 - E78.2) Make sure you are taking the pravastatin everyday to get your cholesterol down (to help prevent strokes and heart attacks, especially with your diabetes! 04/28/2024 Chronic maxillary sinusitis (ICD-10 - J32.0) Will send abx 07/28/2024 Mixed hyperlipidemia (ICD-10 - E78.2) 01/14/2024 Morbid (severe) obesity due to excess calories (ICD-10 - E66.01) Keep working on dietary changes and increasing your activity, to help with weight loss Plan Of Treatment Pending Test Test Name Order Date XR Hand RT (2 views) 11/13/2020 MRI Abdomen w/wo contrast 04/10/2022 XR Knee RT AP & Lat 11/13/2020 MAMM SCREEN BILAT STELLA 3D* 12/26/2021 MRI Abdomen w/ Contrast 01/17/2022 MAMM SCREEN BILAT STELLA 3D GLOBAL* 2022 Next Appt Details Provider Name:Brandy Campbell bernardo, 01/12/2025 09:45:00 AM, [address] [place], [address], Insurance Providers Payer Name Payer Address Payer Phone Subscriber Number Group Number Insured Name Patient Relationship to Insured Coverage Start Date Coverage End Date [employer] [address] [facility] [place] [address] [id number] Michaela Morales Self - patient is the insured 3 Medical (General) History Medical History History ICD Code Diabetes type 2 with neuropathy, and abdifatah roalbuminuria Hyperlipidemia HTN Chronic sinusitis Arthritis Depression Chalazion of left upper eyelid (recurren t) Gout Shingles - left breast/axilla/upper back - 11/16 Surgical History Surgery Date(Month/Year) Tubal ligation I&D Lt upper eyelid 03/05/18 Hospitalization History Reason Date(Month/Year) child
--- OUTSIDE RECORDS SUMMARY | 2025-01-06 09:52 | XMS_ITS | Clinical Summary ---
Author Organization [facility] Healthcare Address [address] [place] [address] Care Team Providers Care Assistant Professor Of Physics Name Role Phone Brandy Moulton MD Primary Care Provider Allergies Active Allergy Reactions Criticality Noted Date Comments Aspirin 08/07/2018 Other Reaction(s): ulcer Gabapentin Dizziness 10/23/2022 Sulfamethoxazole-Trimethopr im 08/07/2018 Other Reaction(s): vomitting / diarrhea Tramadol Dizziness 10/23/2022 Medications allopurinol (Zyloprim) 300 MG tablet Take 300 mg by mouth in the morning. 08/03/2022 Active buPROPion XL (Wellbutrin XL) 150 MG 24 hr tablet Take 150 mg by mouth 1 (one) time each day at the same time. Active hydroCHLOROthiaz terrell (HYDRODiuril) 25 MG tablet Take 25 mg by mouth in the morning. Active metFORMIN (Glucophage) 500 MG tablet Take 500 mg by mouth in the morning. Take with meals. 09/18/2022 Active Family History Medical History Relation Name Comments Multiple myeloma Brother Cancer Mother Diabetes Mother Multiple myeloma Mother Breast cancer Sister Diabetes Sister Heart disease Sister Relation Name Status Comments Brother Father Mother Sister Social History Tobacco Use Types Packs/Day Years Used Date Smoking Tobacco: Never Passive Smoke Exposure: Never Smokeless Tobacco: Never Tobacco Cessation:Counseling Given: Not Answered Alcohol Use Standard Drinks/Week Comments Never 0 (1 standard drink = 0.6 oz pur e alcohol) Comments Unknown Sex and Gender Information Value Date Recorded Sex Assigned at Not on file Legal Sex Female 8:00 PM EDT Gender Identity Not on file Sexual Orientation Not on file Last Filed Vital Signs Vital Sign Reading Time Taken Comments Blood Pressure 132/77 03/07/2021 12:00 PM EDT Pulse - - Temperature - - Respiratory Rate - - Oxygen Saturation - - Inhaled Oxygen Concentration - - Weight 106 kg (234 lb) 01/01/2023 8:32 AM EDT Height 154.9 cm (5' 1 ) 10/23/2022 8:29 AM EDT Body Mass Index 44.21 10/23/2022 8:29 AM EDT Plan of Treatment Health Maintenance Due Date Last Done Comments CT Colonography 1955 Colonoscopy 1955 Colorectal Cancer Screening 1955 FIT-DNA 1955 FIT 1955 FOBT 1955 Sigmoidoscopy 1955 Pneumococcal Vaccine: 65+ Years (1 of 1 - PCV) 006 Mammogram 03/12/2019 03/12/2018 Influenza Vaccine (#1) 2025 Procedures Procedure Name Priority Date/Time Associated Diagnosis Comments BI MAMMOGRAM SCREENING TOMOSYNTHESIS BILATERAL Routine 03/12/2018 12:00 PM EDT Pure hyperglyceridemia Type 2 diabetes mellitus with diabetic neuropathy, unspecified (HCC) Encounter for screening mammogram for malignant neoplasm of breast Chronic maxillary sinusitis from Last 3 Months or Most Recently Relevant to Health Maintenance Results * Bilateral screening mammogram with tomosynthesis (03/12/2018 12:00 PM EDT) Anatomical Region Laterality Modality Breast Bilateral Mammography Narrative 03/12/2018 12:00 PM EDT PERFORMED AT [facility] LOCATION:[id number] Procedure Note CONVERSION, GENERIC / Brandy Moulton MD - 11/28/2022 PERFORMED AT [facility] LOCATION:[id number] us Brandy Moulton MD IMG BI PROCEDURES Final Resu lt from Last 3 Months or Most Recently Relevant to Health Maintenance Insurance [employer] [place] [id number] Care Teams Assistant Professor Of Physics Relationship Specialty Start Date End Date Brandy Moulton MD [address] [place] [address] PCP - General Family Medicine 10/23/22
--- OUTSIDE RECORDS SUMMARY | 2025-01-06 09:52 | XMS_ITS | Encounter Summary ---
Author Organization [facility] Address [address] [place] [address] Care Team Providers Care Adult Health Clinical Nurse Specialist Name Role Phone Brandy Moulton MD Primary Care Provider Encounter Details Date Type Department Care Team (Late st Contact Info) Description 03/12/2023 Abstract [facility] [address] [facility] [address] [place] [id number] Joel Torres, DPM [address] [facility] [address] [place] [address] Social History Tobacco Use Types Packs/Day Years [...] on file Sexual Orientation Not on file documented as of this encounter Plan of Treatment Not on file documented as of this encounter Visit Diagnoses Not on filedocumented in this encounter Care Teams Adult Health Clinical Nurse Specialist Relationship Specialty Start Date End Date Brandy Moulton MD [address] [place] [address] PCP - General Family Medicine 10/23/22 documented as of this encounter
--- OUTSIDE RECORDS SUMMARY | 2025-01-06 09:52 | XMS_ITS | Clinical Summary ---
Author Organization [facility] tem Address [facility] [id number] [address] [place] [address] Care Team Providers Care General Matcher Name Role Phone Brandy Moulton MD Primary Care Provider Allergies Active Allergy Reactions Criticality Noted Date Comments Aspirin 08/07/2018 Sulfamethoxazole-Trimethoprim 2018 Medications metFORMIN XR (GLUCOPHAGE-XR) 500 mg 24 hr tablet Take 500 mg by mouth 2 (two) times a day. 07/30/2018 Active hydroCHLOROthia zide (HYDRODIURIL) 25 mg tablet Take 25 mg by mouth daily. 07/30/2018 Active lidocaine (LIDODERM) 5 % Place 1 patch on the skin daily as needed for pain (pain) for up to 15 doses. Remove & Discard patch within 12 hours or as directed by MD 15 patch 01/11/2022 Active Active Problems Problem Noted Date Diagnosed Date Diabetes mellitus without complication 9 Essential hypertension, benign 08/07/2018 Hyperlipidemia 08/07/2018 Situational depression 08/07/2018 Family History Medical History Relation Name Comments Multiple myeloma Brother Multiple myeloma Mother Breast cancer Sister Diabetes Sister Relation Name Status Comments Brother Father Mother Sister Social History Tobacco Use Types Packs/Day Years Used Date Smoking Tobacco: Never Smokeless Tobacco: Never Alcohol Use Standard Drinks/Week Comments No 0 (1 standard drink = 0.6 oz pur e alcohol) AUDIT-C Answer Date Recorded Frequency of Alcohol Consumption Never 08/07/2018 Average Number of Drinks Not on file 019 Frequency of Binge Drinking Not on file 07/23 PHQ-2 Answer Date Recorded Total Score 0 08/07/2018 Childcare Answer Date Recorded Childcare Unknown 11/03/2018 Employment Answer Date Recorded Employment Unknown 11/03/2018 Purpose - Life Answer Date Recorded Purpose and direction in life Unknown Comments No Sex and Gender Information Value Date Recorded Sex Assigned at Not on file Legal Sex Female 12:07 PM EDT Gender Identity Not on file Sexual Orientation Not on file Last Filed Vital Signs Vital Sign Reading Time Taken Comments Blood Pressure 128/75 01/11/2022 6:11 PM EDT Pulse 103 01/11/2022 6:52 PM EDT Temperature 36.8 C (98.2 F) 01/11/2022 2:32 PM EDT Respiratory Rate 18 01/11/2022 6:52 PM EDT Oxygen Saturation 94% 01/11/2022 6:52 PM EDT Inhaled Oxygen Concentration - - Weight 105.7 kg (233 lb) 08/07/2018 8:07 AM EDT Height 154.9 cm (5' 1 ) 08/07/2018 8:07 AM EDT Body Mass Index 44.02 08/07/2018 8:07 AM EDT Plan of Treatment Health Maintenance Due Date Last Done Comments Depression Screening 1968 Tobacco Screening 1968 Adult BMI Screening 1974 DTaP,Tdap and Td Vaccines (1 - Tdap) 1975 Mammogram 1996 Zoster (Shingles) Vaccine (1 of 2) 2006 Fall Risk Screening 2021 COVID-19 Vaccine (4 - 2023-2 5 season) 2024 05/02/2021, 09/27/2020, 09/05/2020 Influenza Vaccine 01/23/2025 Medical Devices Not on file Insurance [employer] Care Teams General Matcher Relationship Specialty Start Date End Date Brandy Moulton MD [address] [place] [phone] PCP - General Family Medicine 08/02/20
[2025-01-06] MEDS: ADENOSINE 6 MG/2 ML VIAL IVP (09:55)
--- NOTE | 2025-01-06 10:02 | ED.GENADUL1 ---
HPI HPI - General Adult General Chief complaint: Chest Pain Stated complaint: LOW HEART RATE Time Seen by Provider: 01/06/25 09:43 Source: patient Mode of arrival: walk-in Limitations: no limitations History of Present Illness HPI narrative: 69-year-old female presented to the emergency department for dizziness. She woke up at 5 AM and was not dizzy but about 6 AM, 4 hours ago, she developed this dizziness. She did not feel like her heart was racing and she drove herself to an urgent care center. They identified their that her heart rate was fast so she was directed to come here. She states they wanted to call an ambulance but she had a friend bring her instead. No syncope or presyncope. It seems that this happened once before but it seems to have resolved on its own, perhaps a few years ago. She did not seek medical care at that time. Related Data Home Medications ?Medication ?Instructions ?Recorded ?Confirmed hydrochlorothiazide 25 mg tablet 25 mg PO DAILY 01/06/25 01/06/25 metformin 500 mg tablet 1,000 mg PO BID 01/06/25 01/06/25 pregabalin 25 mg capsule (Lyrica) 25 mg PO Q8H 01/06/25 01/06/25 semaglutide 7 mg tablet (Rybelsus) 7 mg PO DAILY 01/06/25 01/06/25 Allergies Allergy/AdvReac Type Severity Reaction Status Date / Time sulfamethoxazole (From AdvReac Intermediate stomach Verified 01/06/25 10:02 Bactrim) pain trimethoprim (From Bactrim) AdvReac Intermediate stomach Verified 01/06/25 10:02 pain aspirin AdvReac Mild ulcer Verified 01/06/25 10:02 Review of Systems ROS Narrative A ten point review of systems is negative except as noted above. PFSH PFSH Social History Little interest or pleasure in doing things: not at all Feeling down, depressed, or hopeless: not at all Exam Narrative Exam Narrative: Nurses note and vital signs reviewed and patient is not hypoxic. General: The patient appears well and in no apparent distress. Patient is resting comfortably on cart. Skin: Warm, dry, no pallor noted. There is no rash noted. Head: Normocephalic, atraumatic Eye: Normal conjunctiva, no drainage Ears, Nose, Mouth, and Throat: oral mucosa is moist. Nares patent. Cardiovascular: Regular and tachycardic Respiratory: Patient is in no distress, no accessory muscle use, lungs are clear to auscultation, no wheezing, rales or rhonchi Back: non-tender GI: Soft and nontender Musculoskeletal: The patient has no evidence of calf tenderness, no pitting edema, symmetrical pulses noted bilaterally Neurological: A&O, normal speech Psychiatric: Cooperative Constitutional Vital Signs, click to edit/add: Last Vital Signs Temp 98.9 F 01/06/25 09:45 Pulse 99 H 01/06/25 11:30 Resp 19 01/06/25 11:30 BP 126/77 01/06/25 11:15 Pulse Ox 98 01/06/25 11:30 O2 Del Method Room Air 01/06/25 09:45 Course Vital Signs Vital signs: Vital Signs Temperature 98.9 F 01/06/25 09:45 Pulse Rate 192 H 01/06/25 09:45 Respiratory Rate 20 01/06/25 09:45 Blood Pressure 81/67 L 01/06/25 09:45 Pulse Oximetry 100 01/06/25 09:45 Oxygen Delivery Method Room Air 01/06/25 09:45 Temperature 98.9 F 01/06/25 09:45 Pulse Rate 99 H 01/06/25 11:30 Respiratory Rate 19 01/06/25 11:30 Blood Pressure 126/77 01/06/25 11:15 Pulse Oximetry 98 01/06/25 11:30 Oxygen Delivery Method Room Air 01/06/25 09:45 Medical Decision Making MDM Narrative Medical decision making narrative: The patient presented with SVT. She was given 6 mg of adenosine which converted her back into sinus rhythm. Mildly tachycardic subsequently but then heart rate has come down gradually and appropriately. Her workup is negative and she is able to be discharged home and now she is asymptomatic with a heart rate below 100. Treatment diagnosis and follow-up were discussed with the patient. Differential Diagnosis Differential Diagnosis: SVT, A-fib, a flutter Lab Data Lab results reviewed: Yes I reviewed the patient's lab results Labs: Lab Results 01/06/25 Range/Units 09:56 WBC 11.8 H (4.0-11.0) 10^3/uL RBC 4.98 (4.20-5.40) 10^6/uL Hgb 13.8 (12.0-16.0) g/dL Hct 43.0 (36.0-48.0) % MCV 86.3 (81.0-99.0) fL MCH 27.7 (26.7-34.0) pg MCHC 32.1 (29.9-35.2) g/dL RDW 13.6 (11.0-15.0) % Plt Count 345 (150-450) 10^3/uL MPV 10.1 (9.5-13.5) fL Neut % (Auto) 72.7 (43.0-75.0) % Lymph % (Auto) 20.7 (20.5-60.0) % Oceana % (Auto) 4.8 (1.7-12.0) % Eos % (Auto) 0.8 L (0.9-7.0) % Baso % (Auto) 0.5 (0.2-2.0) % Neut # (Auto) 8.6 H (1.4-6.5) 10^3/uL Lymph # (Auto) 2.5 (1.2-3.8) 10^3/uL [place] # (Auto) 0.6 (0.3-0.8) 10^3/uL Eos # (Auto) 0.1 (0.0-0.7) 10^3/uL Baso # (Auto) 0.1 (0.0-0.1) 10^3/uL Abs Immat Gran (auto) 0.06 H (0.00-0.03) 10^3/uL Imm/Tot Granulo (auto) 0.5 (0.0-0.5) % Sodium 139 (136-145) mmol/L Potassium 3.8 (3.5-5.1) mmol/L Chloride 102 (98-107) mmol/L Carbon Dioxide 23.0 (21.0-32.0) mmol/L Anion Gap 17.8 BUN 17.0 (7.0-18.0) mg/dL Creatinine 1.33 H (0.55-1.02) mg/dL Est GFR ( Amer) 48 L (>=60 mL/min/1.73m^2) Est GFR (Non-Af Amer) 40 L (>=60 mL/min/1.73m^2) BUN/Creatinine Ratio 12.8 Glucose 215 H (74-106) mg/dL Calcium 9.2 (8.5-10.1) mg/dL Magnesium 1.4 L (1.8-2.4) mg/dL Troponin I High Sens 38.8 (4.0-51.3) pg/mL Imaging Data Left leg Doppler: Radiologist's impression: ITS Impressions Chest X-Ray 01/06/25 09:52 IMPRESSION: NEGATIVE CHEST. Impression dictated by: Cliff Wilkinson Jr., D.O. 01/06/2025 11:16 AM Dictation Location: [facility] Electronically authenticated by: [id number] Y Date: 01/06/2025 11:16 ECG Data Attestation: I personally reviewed and interpreted this ECG as follows: (Initial EKG on my interpretation shows SVT with a rate of 194. Repeat EKG after treatment shows sinus tachycardia with a rate of 129.) Critical Care Time Critical Care Time Critical Care Time: Yes Total Critical Care Time: 35 Attestation: Due to the high probability of sudden and clinically significant deterioration in the patient's condition he/she required the highest level of my preparedness to intervene urgently I provided critical care time including documentation time, medication orders and management, reevaluation, vital sign assessment, ordering and reviewing of lab tests, ordering and reviewing of x-ray studies, and admission orders. Aggregate critical care time is 35 minutes including only time during which I was engaged in work directly related to his/her care and did not include time spent treating other patients simultaneously. Discharge Plan Discharge Chief Complaint: Chest Pain Clinical Impression: Supraventricular tachycardia Patient Disposition: Home, Self-Care Time of Disposition Decision: 11:26 Condition: Good Mode of Transportation: Private Vehicle Prescriptions / Home Meds: No Action metformin 500 mg tablet 1,000 mg PO BID hydrochlorothiazide 25 mg tablet 25 mg PO DAILY Rybelsus 7 mg tablet 7 mg PO DAILY pregabalin [Lyrica] 25 mg capsule 25 mg PO Q8H Print Language: Nepali Instructions: Supraventricular Tachycardia (ED) Referrals: ANGELIC SOUZA [Primary Care Provider, Family Practice] - 1 week Shala Mcleod MD [Physician, Cardiology] - 1 week
[2025-01-06 10:10] LABS: Hematocrit 43.0 % (36.0-48.0); Hemoglobin 13.8 g/dL (12.0-16.0); Immature Granulocytes Abs Auto 0.06 10^3/uL (0.00-0.03); Immature Granulocytes Pct Auto 0.5 % (0.0-0.5); Lymphocytes Absolute Auto 2.5 10^3/uL (1.2-3.8); Mean Corpuscular HGB Conc 32.1 g/dL (29.9-35.2); Mean Corpuscular Hemoglobin 27.7 pg (26.7-34.0); Mean Corpuscular Volume 86.3 fL (81.0-99.0); Platelet Count 345 10^3/uL (150-450); Red Blood Count 4.98 10^6/uL (4.20-5.40); White Blood Count 11.8 10^3/uL (4.0-11.0)
[2025-01-06 10:39] LABS: Anion Gap 17.8; Blood Urea Nitrogen 17.0 mg/dL (7.0-18.0); Calcium 9.2 mg/dL (8.5-10.1); Carbon Dioxide 23.0 mmol/L (21.0-32.0); Chloride 102 mmol/L (98-107); Estimated GFR (African America 48 (>=60 mL/min/1.73m^2); Estimated GFR (Non-African Ame 40 (>=60 mL/min/1.73m^2); Glucose 215 mg/dL (74-106); Magnesium 1.4 mg/dL (1.8-2.4); Potassium 3.8 mmol/L (3.5-5.1); Sodium 139 mmol/L (136-145)
--- NOTE | 2025-01-06 13:28 | ECG_ITS ---
[facility] Test Date: 2025-01-06 Pat Name: CANDELARIA SANDERSON Department: Room: - Gender: Female Business Support Associate: : 1955 Requested By: 1030 Order Number: [id number] Reading MD: DASH JOHNSON M.D. Measurements Intervals [place] Rate: 129 P: 64 NE: 126 QRS: -39 QRSD: 110 T: 74 QT: 316 QTc: 392 Interpretive Statements 1120 Sinus tachycardia 3413 Cannot rule out septal myocardial infarction, probably old 5234 Left ventricular hypertrophy with repolarization abnormality 7200 Abnormal left axis deviation 9150 abnormal ECG Compared to ECG 01/06/2025 09:49:15 Left-axis deviation now present Left anterior fascicular block no longer present Sinus tachycardia is now present Electronically Signed On 01-06-2025 20:56:31 EDT by DASH JOHNSON M.D.
== END 2025-01-06 12:18 | disposition home or self-care (01) ==
PROVIDERS: Emergency Provider Emergency Medicine; PCP Family Medicine
DX: I47.10 Supraventricular tachycardia, unspecified (principal); R42 Dizziness and giddiness
CPT/HCPCS: 36415; 71045; 80048; 83735; 84484; 85025; 93005; 96374; 99285

== ENCOUNTER 2025-02-10 08:47 | Outpatient (OUT) | payer OTHER, SELFPAY ==
--- NOTE | 2025-02-10 08:56 | CA_ITS ---
Patient Name: CANDELARIA SANDERSON MR#: [id number] : 1955 Exam Date: 02/10/2025 Ordering Doctor: DR. CESAR MCLEOD M.D. ECHOCARDIOGRAM REPORT PROCEDURE: CA ECHO DOPPLER COMPLETE INDICATIONS: Murmur, Abnormal EKG COMPARISON: None. DESCRIPTION: COMPLETE ECHOCARDIOGRAM Real-time transthoracic echocardiography with 2D, M-mode, spectral and color flow Doppler performed. QUALITY: Technical quality was good. LEFT VENTRICLE: Normal chamber size. Mild concentric left ventricular hypertrophy. LV EF: Severely reduced left ventricular ejection fraction in global fashion, in addition abnormal septal motion probably due to conduction abnormality, (25-30%). DIASTOLIC: Grade 1 diastolic dysfunction. ATRIAL SEPTUM: Visually appears to be intact LEFT ATRIUM: Normal chamber size. RIGHT ATRIUM: Normal chamber size. RIGHT VENTRICLE: Normal chamber size. Normal right ventricular systolic function. TRICUSPID VALVE: Normal mobility and thickness. No stenosis with trivial regurgitation. No evidence of pulmonary hypertension.RVSP 25mmHg. MITRAL VALVE: Normal mobility and thickness. No evidence of mitral valve stenosis. There is no mitral annular calcification. Mild mitral regurgitation. AORTIC VALVE: Normal trileaflet appearance. No visible sclerosis. Normal leaflet mobility. No evidence of aortic valve stenosis. No aortic regurgitation. AORTIC ROOT: Normal diameter and appearance. PULMONIC VALVE: Normal thickness and mobility. No stenosis. No regurgitation. PERICARDIUM: Trivial pericardial effusion. Fat pad also noted IVC: Collapes with inspirations. Normal size. PLEURA: CONCLUSION: Mild concentric left ventricular hypertrophy Normal left ventricle cavity size Severely reduced left ventricular systolic function in global fashion, in addition abnormal septal motion probably due to conduction abnormality, ejection fraction 25 to 30% Grade 1 diastolic dysfunction Normal right ventricle size and systolic function Normal right-sided pressures, RVSP 25 mmHg Mild mitral regurgitation Trivial tricuspid regurgitation Trivial pericardial effusion Adult Echocardiography Procedure Report Left Ventricle LVEDD (3.7 - 5.6 cm): 4.64 cm LVESD (2.2 - 4.0 cm): 4.14 cm LVIVS thickness (0.6 - 1.2 cm): 1.12 cm LVPW thickness (0.5 - 1.0 cm): 1.13 cm e': 0.06 m/s E - e': 10.25 LVOT Max Gradient: 1.74 mm[Hg] LVOT Area (cm2): 0.66 m/s Peak Velocity (LVOT): 0.66 m/s Mean Velocity (LVOT): 0.42 m/s LVOT Diameter 2.22 cm Left Ventricular Ejection Fraction: 42.71 % Left Atrium LA Volume Index (2D A2C): 28.06 ml/m2 Left Atrium Systolic Dimension: 3.19 cm Mitral Valve MV E to A Ratio: 0.69 MV Max Gradient: MV Mean Gradient: Mitral Valve A-Wave Peak Velocity: 0.95 m/s Mitral Valve E-Wave Peak Velocity: 0.65 m/s Cardiovascular Orifice Area: Right Ventricle RV Internal Diastolic Dimension: 3.68 cm Aorta AO Root Diam: 2.89 cm Ascending Ao Diam: 2.92 cm Aortic Valve AoV Area (Peak Fabian): 2.35 cm2, 2.35 cm2 AoV Area (VTI): 2.57 cm2, 2.57 cm2 Deceleration Bremer: Pressure Half-Time: Peak Velocity(Antegrade Flow): 1.09 m/s Peak Gradient(Antegrade Flow): 4.72 mm[Hg] Mean Velocity(Antegrade Flow): 0.75 m/s Mean Gradient(Antegrade Flow): 2.61 mm[Hg] Velocity Time Integral: 16.49 cm Tricuspid Valve Peak Velocity (Regurgitant Flow): 2.14 m/s, 2.32 m/s Peak Velocity: Pulmonic Valve Mean Gradient: 1.81 mm[Hg], 2.13 mm[Hg], 2.50 mm[Hg] Mean Velocity: 0.60 m/s, 0.68 m/s, 0.77 m/s Peak Velocity: 0.97 m/s, 1.07 m/s Peak Gradient: 4.55 mm[Hg], 3.51 mm[Hg], 3.73 mm[Hg], 3.96 mm[Hg] Right Atrium Right Atrium Systolic Pressure: 56.98 ml, 56.98 ml Dictated by: Cesar Mcleod MD on 02/10/2025 at 10:20 Approved by: Cesar Mcleod MD on 02/10/2025 at 10:30
== END 2025-02-10 08:48 | disposition home or self-care (01) ==
LOC: CARD 08:47
PROVIDERS: PCP Family Medicine; Visit Provider Internal Medicine Cardiovascular Disease
DX: R01.1 Cardiac murmur, unspecified (principal); R94.31 Abnormal electrocardiogram [ECG] [EKG]
CPT/HCPCS: 93306

== ENCOUNTER 2025-03-30 19:35 | Outpatient (OUT) | payer OTHER, SELFPAY ==
--- OUTSIDE RECORDS SUMMARY | 2024-12-22 04:00 | XMS_ITS ---
Author Organization [facility] in [place] Address [address] [place] [address] Care Team Providers Care Pelt Inspector Name Role Phone Brandy Moulton Primary Care Provider REASON FOR VISIT -2 Week Follow Up- Encounters Encounter Location Date Provider Diagnosis [facility] [address] [place] [address] 12/22/2024 Brandy Moulton Plan Of Treatment Next Appt Details Provider Name:Brandy chang, 04/06/2025 10:00:00 AM, [address] [place], [address], Provider Name:Elissa musa, 04/14/2025 11:00:00 AM, [address], [address], Progress Notes * Michaela MORALES GDOB: (69 yo F)Acc No.[id number]:12/22/2024 UNLOCKED PROGRESS NOTE Established Patient: Colten Michaela GRANADO :?Brandy Moulton MDDOB:1955???Age:69 Y ???Sex:FemaleDate:12/22/2024Phone:[phone]:[address] [place] [address] Subjective: * Chief Complaints: * 1 . -2 Week Follow Up-. * Medical History: Objective: * Vitals: Assessment: Plan: * Treatment: * * Electronic signature of Brandy Moulton MD, [id number] on 03/30/2025 at 07:39 PM ESTSign off status: PendingVisit Status:?R/S (Rescheduled) * Provider: Josh Moulton MD Date: 0 12/22/2024 Generated for Printing/Faxing/eTransmitting on:?03/30/2025 07:39 PM EST
--- OUTSIDE RECORDS SUMMARY | 2025-02-02 04:00 | XMS_ITS ---
Author Organization [facility] in [place] Address [address] [place] [address] Care Team Providers Care Supervisor Fabrication Department Name Role Phone Brandy Moulton Primary Care Provider [phone] REASON FOR VISIT follow up Encounters Encounter Location Date Provider Diagnosis [facility] [address] [place] [address] 02/02/2025 Brandy Moulton Plan Of Treatment Next Appt Details Provider Name:Brandy chang, 04/06/2025 10:00:00 AM, [address] [place], [address], Provider Name:Elissa Balderrama ay, 04/14/2025 11:00:00 AM, [address] [place] [address], [address], Progress Notes * Michaela MORALES GDOB: (69 yo F)Acc No.[id number]:02/02/2025 UNLOCKED PROGRESS NOTE Established Patient: Colten GRANADO Michaela Spann :?Brandy Moulton MDDOB:1955???Age:69 Y ???Sex:FemaleDate:02/02/2025Phone:[phone]:[address] [place] [address] Subjective: * Chief Complaints: * 1 . Follow up. * Medical History: Objective: * Vitals: Assessment: Plan: * Treatment: * * Electronic signature of Brandy Moulton MD, [id number] on 03/30/2025 at 12:58 PM ESTSign off status: PendingVisit Status:?R/S (Rescheduled) * Provider: Josh Moulton MD Date: 0 02/02/2025 Generated for Printing/Faxing/eTransmitting on:?03/30/2025 12:58 PM EST
--- OUTSIDE RECORDS SUMMARY | 2025-02-15 10:30 | XMS_ITS ---
Author Organization The [facility] in [place] Address [address] [place] [address] Care Team Providers Care Ad Terminal Makeup Operator Name Role Phone Brandy Moulton Primary Care Provider [phone] Provider, Lab Unavailable [phone] REASON FOR VISIT gf Encounters Encounter Location Date Provider Diagnosis [facility] [place] [address] [address] 02/15/2025 Lab Provider Plan Of Treatment Next Appt Details Provider Name:Brandy chang, 04/06/2025 10:00:00 AM, [address] [place], [address], Provider Name:Elissa Balderrama ay, 04/14/2025 11:00:00 AM, [address], [address], Progress Notes * Michaela MORALES GDOB: (69 yo F)Acc No.[id number]:02/15/2025 UNLOCKED PROGRESS NOTE Progress Note Patient: Colten GRANADO Michaela Maria Ines :?Lab ProviderDOB:1955???Age:69 Y???Sex: FemaleDate:02/15/2025Phone:[phone]:[address] [place] [address]Pcp:Brandy Cartagena In:03:29 PM ESTCheck Out:03:34 PM EST Subjective: * Chief Complaints: * 1 . Gf. * Medical History: Objective: * Vitals: Assessment: Plan: * Treatment: * * Electronic signature of Lab Provider on 03/30/2025 at 12:58 PM ESTSign off status: PendingVisit Status:?CHK (Check Out) * Provider: Renny guerrero Provider Date: 0 02/15/2025 Generated for Printing/Faxing/eTransmitting on:?03/30/2025 12:58 PM EST
--- OUTSIDE RECORDS SUMMARY | 2025-03-02 05:00 | XMS_ITS ---
Author Organization [facility] in [place] Address [address] [place] [address] Care Team Providers Care Practicing Md Anesthesiologist Name Role Phone Brandy Moulton Primary Care Provider [phone] REASON FOR VISIT cardio referral Encounters Encounter Location Date Provider Diagnosis [facility] [address] [place] [address] 03/02/2025 Brandy Moulton Plan Of Treatment Next Appt Details Provider Name:Brandy chang, 04/06/2025 10:00:00 AM, [address] [place], [address], Provider Name:Elissa musa, 04/14/2025 11:00:00 AM, [address] [place] [address], [address], Progress Notes * Michaela MORALES GDOB: (69 yo F)Acc No.[id number]:03/02/2025 UNLOCKED PROGRESS NOTE Established Patient: Colten GRANADO Michaela Spann :?Brandy Moulton MDDOB:1955???Age:69 Y ???Sex:FemaleDate:03/02/2025Phone:[phone]:[address] [place] [address] Subjective: * Chief Complaints: * 1 . Cardio referral. * Medical History: Objective: * Vitals: Assessment: Plan: * Treatment: * * Electronic signature of Brandy Moulton MD, [id number] on 03/30/2025 at 07:38 PM ESTSign off status: PendingVisit Status:?CANC (Cancelled) * Provider: Josh Moulton MD Date: 1 Generated for Printing/Faxing/eTransmitting on:?03/30/2025 07:38 PM EST
--- OUTSIDE RECORDS SUMMARY | 2025-03-14 02:45 | XMS_ITS ---
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 diabetic foot care and neuropathy Encounters Encounter Location Date Provider Diagnosis [facility] [address] [place] [address] 03/14/2025 Do Alexandre Plan Of Treatment Next Appt Details Provider Name:Brandy chang, 04/06/2025 10:00:00 AM, [address] [place], [address], Provider Name:Elissa Balderrama ay, 04/14/2025 11:00:00 AM, [facility] [address], [address], Progress Notes * Michaela MORALES GDOB: (69 yo F)Acc No.[id number]:03/14/2025 UNLOCKED PROGRESS NOTE New Patient Patient: Michaela RADER :?Do Alexandre DPMDOB:1955???Age:69 Y ???Sex:FemaleDate:03/14/2025Phone:[phone]:[address] [place] [address] [id number]:Brandy Moulton Subjective: * Chief Complaints: * 1 . 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 * Active Problem List E11.65 Type 2 diabetes shakila itus with hyperglycemia, without long-term current use of insulin Modified On:08/30/2023 Status:yfnkqlwxgJ11.42Type 2 diabetes mellitus with diabetic polyneuropathy Modified On:12/26/2021 Status:xprrmdswjL78Cmcpsuxjf hypertension Modified On:08/30/2023 Status:vvawecmuaU97.2Mixed hyperlipidemia Modified On:08/30/2023 Status:gmzyxkiqkT88.42Acute left-sided low back pain with left-sided sciatica Modified On:07/19/2020 Status:agjipaeaeT72.41BMI 40.0-44.9, adult Modified On:07/31/2019 Status:fdbvyrnmdE74.9Gout, unspecified Modified On:01/30/2023 Status:zocohikjcJ75.1Tinea unguium Modified On:07/19/2019 Status:ovxydnzcfP61.42Other hammer toe(s) (acquired), left foot Modified On:07/19/2019 Status:tpkovmzphX89.41Other hammer toe(s) (acquired), right foot Modified On:07/19/2019 Status:okauwpwcbN10.9Gout of foot, unspecified cause, unspecified chronicity, unspecified laterality Modified On:06/13/2021 Status:oztgudibmF52.0Chronic maxillary sinusitis Modified On:11/06/2022 Status:zobkifgfqB42.819Arthritis of low back Modified On:08/30/2023 Status:adjmcvaidI90.0Arthritis of both knees Modified On:01/08/2021 Status:clfuqimsfF39.42Diabetic peripheral neuropathy Modified On:11/06/2022 Status:ovgoqmrgoH19.9Depression, unspecified depression type Modified On:01/08/2021 Status:mucmfowszQ48.9Anxiety Modified On:11/17/2022W/U Status:wfjxhmoakG31.8Depression with anxiety Modified On:11/06/2022 Status:cotcsancbZ46.2Seasonal allergic rhinitis, unspecified trigger Modified On:09/12/2021 Status:dbfrjddmbJ29.89Odontalgia Modified On:12/26/2021 Status:aigyrbtdeV97.29Other chronic pain Modified On:12/26/2021 Status:akqrexammN45.89Renal mass, left Modified On:01/30/2023 Status:yveiyeqfyD90.30Sleep-disordered breathing Modified On:11/06/2022 Status:atfcmtaahW99.01Morbid (severe) obesity due to excess calories Modified On:08/30/2023 Status:sjduyubdqA14.41Acute combined systolic (congestive) and diastolic (congestive) heart failure Modified On:02/27/2025 Status:confirmed * Medical History: Objective: * Vitals: Assessment: Plan: * Treatment: * * Electronic signature of Do Alexandre DPM, [id number] on 03/30/2025 at 07:39 PM ESTSign off status: PendingVisit Status:?N/S N/C (No Show/No Charge) * Provider: Sherrie Alexandre DPM Date: Generated for Printing/Faxing/eTransmitting on:?03/30/2025 07:39 PM EST
--- OUTSIDE RECORDS SUMMARY | 2025-03-16 04:15 | XMS_ITS ---
Author Organization The [facility] in [place] Address [address] [place] [address] Care Team Providers Care Ship Propeller Finisher Name Role Phone Brandy Moulton Primary Care Provider [phone] Provider, Lab Unavailable [phone] Encounters Encounter Location Date Provider Diagnosis [facility] [place] [address] [address] 03/16/2025 Lab Provider Plan Of Treatment Next Appt Details Provider Name:Brandy chang, 04/06/2025 10:00:00 AM, [address] [place], [address], Provider Name:Elissa Balderrama ay, 04/14/2025 11:00:00 AM, [address], [address], Progress Notes * Michaela MORALES GDOB: (69 yo F)Acc No.[id number]:03/16/2025 UNLOCKED PROGRESS NOTE Progress Note Patient: Colten GRANADO Michaela Maria Ines :?Lab ProviderDOB:1955???Age:69 Y???Sex: FemaleDate:03/16/2025Phone:[phone]:[address] [place] [address]Pcp:Brandy Cartagena In:09:15 AM ESTCheck Out:09:34 AM EST Subjective: * Chief Complaints: * [address] * Medical History: Objective: * Vitals: Assessment: Plan: * Treatment: * * Electronic signature of Lab Provider on 03/30/2025 at 12:58 PM ESTSign off status: PendingVisit Status:?CHK (Check Out) * Provider: Renny guerrero Provider Date: Generated for Printing/Faxing/eTransmitting on:?03/30/2025 12:58 PM EST
--- OUTSIDE RECORDS SUMMARY | 2025-03-30 19:39 | XMS_ITS | Patient Health Record ---
Author Organization [facility] in [place] Address [address] [place] [address] Care Team Providers Care Nurses Educator Name Role Phone [place]oul[place] Brandy Primary Care Provider [phone] Do Alexandre Unavailable [phone] Provider, Lab Unavailable [phone] Allergies Allergen (clinical drug ingredient) Drug/Non Drug Allergy documented on EMR Reaction Allergy Type Onset Date Status aspirin Aspirin Stomach upset Drug Allergy Activesulfamethoxazole / trimethoprimBactrimNausea/vomitingDrug AllergyActive Results Component Value Reference Range Notes HEMOGLOBIN A1C - IN OFFICE Reviewed date:11/03/2024 09:02:05 AM Interpretation:8.3 Performing Lab: Notes/Report: 8.3 HEMOGLOBIN A1C - IN OFFICE 8.3 4.4 - 6.4 LIPID PANEL (CHOL/TRIG/HDL/LDL) Reviewed date:07/28/2024 10:42:09 AM Interpretation: Performing Lab:[facility], [address] , [place], [address] Notes/Report: CHOL REFERENCE RANGE: DESIRABLE: < 200 [...] 4.5 - 7.1, HIGH RISK: > 7.1 [facility] UA FACILITY: [facility] [id number](120 - 200) MG/IBFHZVMZTWWNVIW916(30 - 150) MG/DLHDL52 (40.0 - 60.0) MG/DLLDL (CALC)126(0 - 130) MG/AANMMH82(7 - 46) MG/DLCHOL-HDL RATIO4.5(0.0 - 4.4)CBC WITH DIFF Reviewed date:07/28/2024 10:42:09 AM Interpretation: Performing Lab:[facility], [address], [place], [address] Notes/Report: [facility] FACILITY: [facility] [id number](3.80 - 10.60) x10^1vgIPJ1.29(4.20 - 5.40) x10^5woKDBFEYDHWI04.1 (12.0 - 16.0) G/JMCBSHKOZPZU89.1(37.0 - 47.0) %MCV85.3(81.0 - 99.0) flMCH26.7 (27.0 - 33.0) PUEUQW11.3(30.0 - 37.0) G/DLRDW-SD43.1(37.0 - 49.0) orDLV928(130 - 400) x10^0xqFSRQ10.1() %LYMPS31.6() %MONOS5.3() %EOSINOPHIL3.0() %BASOS0.5() % IMMATURE GRANS (IG)0.5() %ABS NEUTROPHIL4.90(1.50 - 7.00) x10^3ulABS LYMPHOCYTE 2.62(0.96 - 5.40) x10^3ulABS MONOCYTE0.44(0.10 - 1.00) x10^3ulABS EOSINOPHIL0.25 (0.00 - 0.40) x10^3ulABS BASOPHIL0.04(0.00 - 0.16) x10^3ulABS IMMATURE GRANS0.04 (0.00 - 0.11) x10^3ulMICROALBUMIN with ALB/CREAT RATIO, URINE (MALB)) Reviewed date:07/28/2024 10:42:09 AM Interpretation: Performing Lab:[facility], [address] [place], [address] Notes/Report: REF RANGE : ALB/CREAT RATIO NORMAL = 0 - 13 MG/G CREAT BORDERLINE = 14 - 30 MG/G CREAT ABNORMAL = >30 MG/G CREAT [facility] UA FACILITY: [facility] [id number] COLLECTIONRANDOM( - NOTED)URINE CREAT59.8() MG/DLMICRO ALB, UR 0.89(0.0 - 1.70) MG/DLALB/CREAT RATIO14.9(0.0 - 30.0) MG/G CRURIC ACID Reviewed date:07/28/2024 10:42:09 AM Interpretation: Performing Lab:[facility], [address] , [place], [address] Notes/Report: [facility] UA FACILITY: [facility] [id number] ACID5.7(2.5 - 6.2) MG/DLBMP (BASIC MET PANEL) w/eGFR CKD-EPI (Not yet reviewed by provider) Interpretation: Performing Lab:[facility], [address] [place], [address] Notes/Report: 1C FACILITY: [facility] [id number](74 - 106) MG/DLBUN21(4 - 25) MG/DLCREATININE, BLOOD 0.69(0.52 - 1.04) MG/DLGFR by CKD-EPI94.5(60.0) ML/M1.0GFIWAV545(135 - 145) MMOL/LPOTASSIUM3.9(3.5 - 5.1) MMOL/XVUABIOIE440(98 - 110) MMOL/LCARBON TXLRKNB92 (22 - 30) MMOL/LCALCIUM9.5(8.6 - 10.6) MG/DLMAGNESIUM (Not yet reviewed by provider) Interpretation: Performing Lab:[facility], [address] [place], [place], [address] Notes/Report: 1SST FACILITY: [facility] [id number](1.6 - 2.3) MG/DLLIPID PANEL (CHOL/TRIG/HDL/LDL) (Not yet reviewed by provider) Interpretation: Performing Lab:[facility], [address] [place], [address] Notes/Report: CHOL REFERENCE RANGE: DESIRABLE: < 200 [...] 4.5 - 7.1, HIGH RISK: > 7.1 1SST FACILITY: [facility] [id number](120 - 200) MG/TIXXXPKZQJHAIYH270(30 - 150) MG/DL HDL54.1(40.0 - 60.0) MG/DLLDL (CALC)62(0 - 130) MG/UTRMKO51(7 - 46) MG/DLCHOL- HDL RATIO3.1(0.0 - 4.4)BMP (BASIC MET PANEL) w/eGFR CKD-EPI (Not yet reviewed by provider) Interpretation: Performing Lab:[facility], [address] [place], [place], [address] Notes/Report: 1SST FACILITY: [facility] [id number](74 - 106) MG/DLBUN19(4 - 25) MG/DLCREATININE, BLOOD 0.71(0.52 - 1.04) MG/DLGFR by CKD-EPI92.6(60.0) ML/M1.7MVHCMT476(135 - 145) MMOL/LPOTASSIUM3.9(3.5 - 5.1) MMOL/JBVANUFWV300(98 - 110) MMOL/LCARBON ALLVKOZ03 (22 - 30) MMOL/LCALCIUM9.6(8.6 - 10.6) MG/DLHEMOGLOBIN A1C - IN OFFICE Reviewed date:04/29/2024 08:06:24 AM Interpretation:7.1 Performing Lab: Notes/Report: 7.1HEMOGLOBIN A1C - IN OFFICE7.14.4 - 6.4CMP (COMP MET SALINAS) w/eGFR CKD-EPI Reviewed date:07/28/2024 10:42:09 AM Interpretation: Performing Lab:[facility], [address] [place], [address] Notes/Report: LAV SST UA FACILITY: [facility] [id number](74 - 106) MG/DLBUN22(4 - 25) MG/DLCREATININE, BLOOD0.72(0.52 - 1.04) MG/DLGFR by CKD-EPI91.0(60.0) ML/M1.4MGNLFU332(137 - 145) MMOL/L POTASSIUM4.4(3.5 - 5.1) MMOL/IUKTVAGJU405(98 - 107) MMOL/LCARBON KJXHTUV05(22 - 30) MMOL/ROFCULHH55.5(8.6 - 10.6) MG/DLALBUMIN4.5(3.5 - 5.0) G/DLTOTAL PROTEIN 8.1(6.3 - 8.2) G/DLALK PHOS87(38 - 126) U/LALT (SGPT)23(1 - 35) U/LAST (SGOT)29 (15 - 46) U/LBILIRUBIN, TOT0.8(0.2 - 1.3) MG/DL Reason For Referral Reason Eval and treat for d iabetic foot care and neuropathy Diagnosis 1 Type 2 diabetes shakila itus with diabetic polyneuropathy (E11.42) Referring Provider First Name Brandy Referring Provider Last Name Saige Referring Provider Speciality [facility] Referred Organization [facility] Referred Provider Do Alexandre Referred Address [address],[place], [place],[address],[place] Referred Provider Specialty Podiatry Referral Priority Routine Reason Eval and treat for d iabetic foot care and neuropathy Diagnosis 1 Type 2 diabetes shakila itus with diabetic polyneuropathy (E11.42) Referral Organization [facility] alma Referring Provider First Name Brandy Referring Provider Last Name Saige [facility] Referred Organization [facility] Referred Provider Do Alexandre Referred Address [address] [facility] [address],[place], [place],[address],[place] Referred Provider Specialty Podiatry Referral Priority Routine Reason Eval and treat for h ospital follow up of acute combined CHF, recent diagnosis of SVT, recent ECHO showing EF 25-30% Diagnosis 1 Acute combined systo lic (congestive) and diastolic (congestive) heart failure (I50.41) Diagnosis 2 Supraventricular tac hycardia, unspecified (I47.10) Referral Organization [facility] Referring Provider First Name Brandy Referring Provider Last Name Saige Referring Provider [facility] deepak Referred Provider SURI GALO Referred Provider Specialty Cardiology General Notes Brandy Moulton 04:47:34 PM >Please attach [facility] visit, ECHO from 02/10/25 at [facility], and also discharge summary from [facility] 02/23/25 Referral Priority Urgent Medications Medication SIG (Take, Route, Frequency, Duration) Notes Start Date End Date Status Spironolactone 25 MG 1 tablet Orally Once a day; Duration: 30 days ActiveAllopurinol 300 MG1 tablet Orally Once a day; Duration: 90 daysNot-Taking Doxycycline Hyclate 100 MG1 capsule Orally twice a dayActiveExtra Depth Diabetic Shoe -as directed - Daily; Duration: 365 days2 units, A5500, DX E11.42010/28/2019 UnknownRybelsus 7 mgTAKE ONE TABLET BY MOUTH EVERY MORNING AT least 30 MINUTES BEFORE first food, beverage, OR other oral medication OF THE DAY; Duration: 30 ActiveRosuvastatin Calcium 5 MG1 tablet Orally Once a day; Duration: 30 days 5ActiveProventil HFA 108 (90 Base) MCG/ACT2 puffs Inhalation every 4 hrs prn cough/SOBprnNot-TakingValsartan 40 MG1 tablet Orally dailyActive metFORMIN HCl 500 MGTake 2 tablets by mouth twice daily Orally bid; Duration: 90 daysActiveHYDROcodone-Acetaminophen 5-325 MG1 tablet as needed Orally BID prn severe pain; Duration: 7 days5ActiveHeat Molded Inserts -as directed - Daily; Duration: 365 days6 units, A5512, DX: E11.4206UnknownPregabalin 25 MG1 capsule Orally twice a day as needed; Duration: 30 days5Active Lidocaine 4 %1 application as needed Externally Three times a day; Duration: 7 daysApply under left arm and to upper back TID prn pain11/17/2024Not-Taking Metoprolol Succinate 50 MG1 capsule Orally Once a dayActiveIbuprofen 600 MG1 tablet with food or milk as needed Orally TID prn pain; Duration: 90 daysPRN 02/18/2019Not-TakingDapagliflozin Propanediol 10 MG1 tablet Orally Once a day ActiveFurosemide 40 MG1 tablet Orally Once a day; Duration: 30 daysActive Immunizations Vaccine Route Administration Date Status Comme nts SARS-COV-2 (COVID 19 Pfizer 30mcg/0.3mL) Unknown 09/05/2020 Administered SARS-COV-2 (COVID 19 Pfizer 30mcg/0.3mL)Veszikh85/06/1621NipunwlpntspLTBF-NIQ-2 (COVID 19 Pfizer Booster 0.3mL)Ahlefpg99/09/2021Administered Social History Tobacco Use: Social History Observation Description Date Details (start date - stop date) Never Smoker NA - NA Tobacco Use/Smoking Question Answer Notes Patient is a nonsmoker Alcohol Screen (Audit-C) Question Answer Notes Did you have a drink containing alcohol in the p ast year? No Trjsyr7RpwkxfinpazcodAvlbmpin Problems Problem Type SNOMED Code ICD Code Onset Dates Problem Status W/U Status Risk Notes Problem Tinea unguium (389867357) Tinea unguium ( B35.1) ActiveconfirmedProblemPolyneuropathy due to type 2 diabetes mellitus (625725963) Type 2 diabetes mellitus with diabetic polyneuropathy (E11.42)Activeconfirmed ProblemMorbid obesity (disorder) (510714680)Morbid (severe) obesity due to excess calories (E66.01)ActiveconfirmedProblemMixed hyperlipidemia (610188651) Mixed hyperlipidemia (E78.2)ActiveconfirmedProblemChronic pain (20266792)Other chronic pain (G89.29)ActiveconfirmedProblemAcute combined systolic and diastolic heart failure (043598566056293)Acute combined systolic (congestive) and diastolic (congestive) heart failure (I50.41)ActiveconfirmedProblemChronic maxillary sinusitis (65193848)Chronic maxillary sinusitis (J32.0)Activeconfirmed ProblemGout (84076861)Gout, unspecified (M10.9)ActiveconfirmedProblemDiabetic peripheral neuropathy (376885993)Diabetic peripheral neuropathy (E11.42)Active confirmedProblemAnxiety (93055508)Anxiety (F41.9)ActiveconfirmedProblemEssential hypertension (07347771)Essential hypertension (I10)ActiveconfirmedProblemMixed anxiety and depressive disorder (768576216)Depression with anxiety (F41.8)Active confirmedProblemAcquired hammer toe of right foot (8877992470751101)Other hammer toe(s) (acquired), right foot (M20.41)ActiveconfirmedProblemAcquired hammer toe of left foot (0060305892872874)Other hammer toe(s) (acquired), left foot (M20.42)ActiveconfirmedProblemSleep apnea (13302726)Sleep-disordered breathing (G47.30)ActiveconfirmedProblemGout (99258464)Gout of foot, unspecified cause, unspecified chronicity, unspecified laterality (M10.9)ActiveconfirmedProblem Disorder of kidney and/or ureter (879886519)Renal mass, left (N28.89)Active confirmedProblemBody mass index 40+ - morbidly obese (923629761)BMI 40.0-44.9, adult (Z68.41)ActiveconfirmedProblemSpondylosis without myelopathy (75424354) Arthritis of low back (M47.819)ActiveconfirmedProblemDepressive disorder (disorder) (38577982)Depression, unspecified depression type (F32.9)Active confirmedProblemHyperglycemia due to type 2 diabetes mellitus (490213713036857) Type 2 diabetes mellitus with hyperglycemia, without long-term current use of insulin (E11.65)ActiveconfirmedProblemSciatica (90318159)Acute left-sided low back pain with left-sided sciatica (M54.42)ActiveconfirmedProblemOdontalgia (15863727)Odontalgia (K08.89)ActiveconfirmedProblemArthritis of both knees (7898037553987863)Arthritis of both knees (M17.0)ActiveconfirmedProblemSeasonal allergic rhinitis (289670846)Seasonal allergic rhinitis, unspecified trigger (J30.2)Activeconfirmed Vital Signs Heart Rate 87 /min 02/27/2025 Weight down 6 p ounds from last visit Respiratory Rate 16 /min 02/27/2025 Weight down 6 pounds from last visit Oximetry 98 % 02/27/2025 Weight down 6 p ounds from last visit Blood pressure diastolic 76 mm Hg 02/27/2025 Dar ght down 6 pounds from last visit Height 62 in 02/27/2025 Weight down 6 p ounds from last visit Blood pressure systolic 116 mm Hg 02/27/2025 Weig ht down 6 pounds from last visit Weight 208.2 lbs 02/27/2025 Weight down 6 p ounds from last visit BMI 38.08 kg/m2 02/27/2025 Weight down 6 p ounds from last visit Encounters Encounter Location Date Provider Diagnosis [address] [address] 12/23/2024 Brandy Moulton Type 2 diabetes shakila itus with hyperglycemia, without long-term current use of insulin E11.65 ; Zoster with other complications B02.8 and Hordeolum externum left lower eyelid H00.[address] [address] 01/12/2025 Brandy Moulton Supraventricular tachycardia, unspecified I47.10 ; Type 2 diabetes mellitus with diabetic polyneuropathy E11.42 ; Essential hypertension I10 ; Mixed hyperlipidemia E78.2 and Zoster with other complications B02.8 [address] [place] [address] 02/09/2025 Brandy Moulton Supraventricular tachycardia, unspecified I47.10 ; Type 2 diabetes mellitus with diabetic polyneuropathy E11.42 ; Essential hypertension I10 ; Mixed hyperlipidemia E78.2 and Zoster with other complications B02.[address] [address] 04/28/2024 Brandy Moulton Type 2 diabetes shakila itus with hyperglycemia, without long-term current use of insulin E11.65 ; Essential hypertension I10 ; Mixed hyperlipidemia E78.2 and Chronic maxillary sinusitis J32.0 [address] [place] [address] 11/03/2024 Brandy Moulton Type 2 diabetes shakila itus with hyperglycemia, without long-term current use of insulin E11.65 and Zoster with other complications B02.[address] [address] 02/27/2025 Brandy Moulton Acute combined systo lic (congestive) and diastolic (congestive) heart failure I50.41 ; Supraventricular tachycardia, unspecified I47.10 ; Type 2 diabetes mellitus with diabetic polyneuropathy E11.42 and Acute respiratory failure with hypoxia J96.01 [facility] [address] [place] [address] 07/01/2024 Lab Provider [facility] [address] [place] [address]/[facility] [address] [place] [address]/Lab [facility]FaK[facility] [address] [place] [address]/07/2024Heather HaynesZoster without complications B02.9 and Type 2 diabetes mellitus with diabetic polyneuropathy E11.[address] [address]/10/2024 Brandyher MoultonType 2 diabetes mellitus with diabetic polyneuropathy E11.42 ; Encounter for general adult medical examination without abnormal findings Z00.00 ; Essential hypertension I10 and Mixed hyperlipidemia E78.[address] [place] [address]/Heather SaigeType 2 diabetes mellitus with hyperglycemia, without long-term current use of insulin E11.65 and Zoster with other complications B02.8[address] [place] [address]/Heather [facility] coordinated healthType 2 diabetes mellitus with hyperglycemia, without long-term current use of insulin E11.65 ; Zoster with other complications B02.8 and Hordeolum externum left lower eyelid H00.015 [address] [place] [address]/09/2023Heather [facility] for general adult medical examination without abnormal findings Z00.00 ; Type 2 diabetes mellitus with diabetic polyneuropathy E11.42 and Gout of foot, unspecified cause, unspecified chronicity, unspecified laterality M10.9 [address] [place] [address]/02/2025Heather PikeType 2 diabetes mellitus with hyperglycemia, without long-term current use of insulin E11.65[address] [place] [address] 08/30/2024[address] [place] [address]/Heather PikeGout, unspecified M10.9[address] [place] [address]/04/2025[address] [place] [address]/Heather Pike Zoster with other complications B02.8[facility] [address] [place] [address]/07/2024[address] [place] [address]/02/2025[address] [place] [address]/Heaovi Robertsnes Assessments Encounter Date Diagnosis (ICD Code) Assessment Notes Treatment Notes Treatment Clinical Notes Section Notes 04/28/2024 Type 2 diabetes shakila itus with hyperglycemia, without long-term current use of insulin (ICD-10 - E11.65) A1c is down to 7.1!!! Continue jardiance and metformin 04/28/2024Essential hypertension (ICD-10 - I10) BP is actually great!!! Continue current meds Call if you are having any more dizzy episodes 07/28/2024Type 2 diabetes mellitus with diabetic polyneuropathy (ICD-10 - E11.42)unable to get A1c machine to work today but with her home numbers all around 150, ok to decrease tothe jardiance 10mg07/28/2024Encounter for general adult medical examination without abnormal findings (ICD-10 - Z00.00)11/03/2024 Type 2 diabetes mellitus with hyperglycemia, without long-term current use of insulin (ICD-10 - E11.65) A1c is up to 8.3, so we really need to add the rybelsus!! Still waiting on prior auth for rybelsus Will give another sample of rybelsus for now 11/03/2024Zoster with other complications (ICD-10 - B02.8) Start gabapentin 300mg BID for the next 2 weeks to help with neuropathy pain May need to be off work next week Also refill of ibuprofen 10/25/2024Zoster without complications (ICD-10 - B02.9) Valtrex TID for 7 days Continue with tylenol and motrin as needed for pain 10/25/2024Type 2 diabetes mellitus with diabetic polyneuropathy (ICD-10 - E11.42) Scrpt for rybelsus, to help control sugars. -pt did not tolerate the jardiance due to continuous vaginal itching 11/17/2024Type 2 diabetes mellitus with hyperglycemia, without long-term current use of insulin (ICD-10 - E11.65) Continue rybelsus every morning to help get sugars controlled. Will need 90 day supply to mail 12/09/2024Type 2 diabetes mellitus with hyperglycemia, without long-term current use of insulin (ICD-10 - E11.65)Continue with metformin and xdacynuy77/18/2025 Zoster with other complications (ICD-10 - B02.8) Switch to lyrica since not feeling well with the gabapentin Will also provide a few more norco, to use mainly at night Continue other topicals 01/12/2025Supraventricular tachycardia, unspecified (ICD-10 - I47.10) Episode last Thursday, 01/06, that required adenosine IV, to get back into sinus rhythm Follow up with cardio as directed! 02/09/2025Supraventricular tachycardia, unspecified (ICD-10 - I47.10)Please start the metoprolol 1/2 tablet daily02/27/2025ute combined systolic (congestive) and diastolic (congestive) heart failure (ICD-10 - I50.41)Continue all current meds, refer to [facility] Hcvwnuweug45/06/2025Supraventricular tachycardia, unspecified (ICD-10 - I47.10)Refer to [facility] for urgent hospital follow up for acute CHF and recent diagnosis of SVT and abnormal ECHO - most likely needs heart cath in near future.12/23/2024Type 2 diabetes mellitus with hyperglycemia, without long-term current use of insulin (ICD-10 - E11.65)Continue current meds and keep watching your diet closely!12/23/2024 Zoster with other complications (ICD-10 - B02.8) Encouraged pt to take the lyrica to help with the actual nerve pain!!! It is a very low dose and will only be for a few more weeks! -ok to continue alternating the tylenol and ibuprofen as well. -really limit the norco 04/28/2024Encounter for general adult medical examination without abnormal findings (ICD-10 - Z00.00)04/28/2024Type 2 diabetes mellitus with diabetic polyneuropathy (ICD-10 - E11.42)08/01/2024Type 2 diabetes mellitus with hyperglycemia, without long-term current use of insulin (ICD-10 - E11.65) 09/16/2024Gout, unspecified (ICD-10 - M10.9)12/05/2024Zoster with other complications (ICD-10 - B02.8)04/28/2024Gout of foot, unspecified cause, unspecified chronicity, unspecified laterality (ICD-10 - M10.9)12/23/2024 Hordeolum externum left lower eyelid (ICD-10 - H00.015)Nearly cdfjkxpu74/06/2025 Type 2 diabetes mellitus with diabetic polyneuropathy (ICD-10 - E11.42)Continue rybelsus and cszhliewy49/18/2025Type 2 diabetes mellitus with diabetic polyneuropathy (ICD-10 - E11.42) Continue rybelsus daily, and continue to watch your diet Will send referral to Dr. Xiao Alexandre for podiatry care 01/12/2025Type 2 diabetes mellitus with diabetic polyneuropathy (ICD-10 - E11.42)Please make sure you are taking both the metformin and rybelsus, to keep your sugars vpbjnnvkye40/18/2025Hordeolum externum left lower eyelid (ICD-10 - H00.015)garamycin drops, warm yfzetibsqu71/26/2025Zoster with other complications (ICD-10 - B02.8) Will try lower dose of gabapentin - 100mg BID Also will send lidocaine cream Would like a few norco to have for night time 07/28/2024Essential hypertension (ICD-10 - I10)04/28/2024Mixed hyperlipidemia (ICD-10 - E78.2) Ok to continue on the pravastatin 1/2 tablet. Please check fasting labs in the next week 04/28/2024hronic maxillary sinusitis (ICD-10 - J32.0)Will send abx07/28/2024 Mixed hyperlipidemia (ICD-10 - E78.2)01/12/2025Essential hypertension (ICD-10 - I10)Continue HCTZ, unless your are noticing that your BP is staying low 02/09/2025Essential hypertension (ICD-10 - I10)Continue HCTZ, and also start the 1/2 of the izvgmfaphv63/06/2025ute respiratory failure with hypoxia (ICD-10 - J96.01)Resolved with gjnmxjfo49/18/2025Mixed hyperlipidemia (ICD-10 - E78.2) Continue the statin, especially with both Diabetes and the SVT01/12/2025Mixed hyperlipidemia (ICD-10 - E78.2)Please TAKE the rosuvastatin daily!01/12/2025 Zoster with other complications (ICD-10 - B02.8) Much improved Continue with tylenol as needed Still ok to take the lyrica as needed for pain 02/09/2025Zoster with other complications (ICD-10 - B02.8)Can wean off the lyrica, but I will send another script to take as needed Plan Of Treatment Pending Test Test Name Order Date MAGNESIUM 03/16/2025 LIPID PANEL (CHOL/TRIG/HDL/LDL) 03/16/20 25 XR Hand RT (2 views) 11/13/2020 MRI Abdomen w/wo contrast 04/10/2022 XR Knee RT AP & Lat 11/13/2020 MAMM SCREEN BILAT STELLA 3D* 12/26/2021 MRI Abdomen w/ Contrast 01/17/2022 MAMM SCREEN BILAT STELLA 3D GLOBAL* 2022 BMP (BASIC MET PANEL) w/eGFR CKD-EPI BMP (BASIC MET PANEL) w/eGFR CKD-EPI Next Appt Details Provider Name:Brandy Campbell es, 04/06/2025 10:00:00 AM, [address] [place], [address], Provider Name:Elissa Balderrama ay, 04/14/2025 11:00:00 AM, [address], [address], Insurance Providers Payer Name Payer Address Payer Phone Subscriber Number Group Number Insured Name Patient Relationship to Insured Coverage Start Date Coverage End Date [employer] [address] [place] [address] [id number] Michaela Morales Self - patient is the insured 3 Medical (General) History Medical History History ICD Code Diabetes type 2 with neuropathy, and abdifatah roalbuminuria HyperlipidemiaHTNChronic sinusitisArthritisDepressionChalazion of left upper eyelid (recurrent)GoutShingles - left breast/axilla/upper back - 11/16SVT - 01/06/25Surgical History Surgery Date(Month/Year) Tubal ligation I&D Lt upper /12/18Hospitalization History Reason Date(Month/Year) [facility] - Acute Resp Failure, C HF 02/21-02/23/25 child [facility] - SVT01/06/25
--- OUTSIDE RECORDS SUMMARY | 2025-03-30 19:39 | XMS_ITS | Clinical Summary ---
Author Organization [facility] Address [address] [place] [address] Care Team Providers Care Robotics Specialist Name Role Phone Brandy Moulton MD Primary Care Provider Allergies Active AllergyReactionsCriticalityNoted KhmnSaecwlpdDsruosqUwpuw36/16/2019 Other Reaction(s): ulcer PuzdjnupypEisakdaqt32/01/2023Sulfamethoxazole-TrimethoprimNausea And Vomiting 08/07/2018 Other Reaction(s): vomitting / diarrhea QaofbycoRqojmdzuk17/01/2023 Medications MedicationSigDispense QuantityRefillsLast FilledStart DateEnd DateStatus allopurinol (Zyloprim) 300 mg tablet Take 300 mg by mouth in the morning.Active gentamicin (Garamycin) 0.3 % ophthalmic solution 1 drop four times daily.5Active hydroCHLOROthiazide (HYDRODiuril) 25 mg tablet Take 25 mg by mouth in the morning.07/30/2018Active HYDROcodone-acetaminophen ([place]) 5-325 mg tablet Take 1 tablet by mouth every 4 (four) hours if needed.12/09/2024tive ibuprofen 600 mg tablet Take 600 mg by mouth three times daily.02/18/2019Active metFORMIN (Glucophage) 500 mg tablet Take 500 mg by mouth with breakfast and with evening meal.3Active pregabalin (Lyrica) 25 mg capsule Take 25 mg by mouth in the morning.5Active rosuvastatin (Crestor) 5 mg tablet Take 5 mg by mouth in the morning.5Active Rybelsus 7 mg tablet Take 7 mg by mouth in the morning.Active metoprolol succinate XL (Toprol-XL) 50 mg 24 hr tablet Indications:SVT (supraventricular tachycardia),Essential hypertensionTake 1 tablet (50 mg) by mouth in the morning. Do not crush or chew. 30 tablet 1105002/03/2026ctive valsartan (Diovan) 40 mg tablet Indications:Chronic combined systolic and diastolic heart failure (CMS/HCC)Take 1 tablet (40 mg) by mouth in the morning. 30 tablet 1105002/10/2026ctive Active Problems ProblemNoted DateDiagnosed DateAcute respiratory failure with hjmshae3302/22/2025 SVT (supraventricular tachycardia)02/03/2025Murmur, heart02/03/2025bnormal EKG 02/03/2025Sleep apnea02/03/2025lass 2 severe obesity due to excess calories with serious comorbidity and body mass index (BMI) of39.0 to 39.9 in adult 02/03/2025enign hypertensive heart and kidney disease without heart failure and with chronic kidney disease stage V or end stage renal disease(404.12)02/03/2025 Diabetes mellitus without lbjyzeacrrwy17/16/2019Essential qhidqadzncvq69/16/2019 Svwtknkcebgxpr73/16/2019Situational oendmczhwn14/16/2019 Encounters DateTypeDepartmentCare QglgNgsfqjozuto53/23/2025Telephone [facility] [address] [facility] [place] [address] Deepika Lino MA 03/07/2025Orders Only [facility] [address] [facility] [place] [address] Karol Herrera MA Benign hypertensive heart disease with heart failure (CMS/HCC) (Primary Dx); Mixed /14/2025Results Follow-Up [facility] [address] [facility] [place] [address] Shala Mcleod MD Comprehensive metabolic panel02/24/2025Telephone [facility] [address] [facility] [place] [address] Rhonda Dhillon MA 02/23/2025Orders Only [facility] [address] [facility] [place] [address] ProviderBrian MD 02/10/2025 11:20 AM EDTOffice Visit [facility] [address] [facility] [place] [address] Shala Mcleod MD SVT (supraventricular tachycardia) (Primary Dx); Chronic combined systolic and diastolic heart failure (CMS/HCC)02/10/2025Orders Only [facility] [address] [facility] [place] [address] ProviderBrian MD 02/03/2025 10:00 AM EDTOffice Visit [facility] [address] [facility] [place] [address] Shala Mcleod MD SVT (supraventricular tachycardia) (Primary Dx); Murmur, heart; Abnormal EKG; Essential hypertension; Sleep apnea, unspecified type; Hyperlipidemia, unspecified hyperlipidemia type; Diabetes mellitus without complication (CMS/HCC); Class 2 severe obesity due to excess calories with serious comorbidity and body mass index (BMI) of39.0 to 39.9 in adult (CMS/HCC); 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) (CMS/HCC)from Last 3 Months Family History RelationNameStatusCommentsFatherDeceasedMotherDeceased Social History Tobacco UseTypesPacks/DayYears UsedDateSmoking Tobacco: NeverSmokeless Tobacco: Never Tobacco Cessation:Counseling Given: Not Answered Alcohol UseStandard Drinks/WeekCommentsNot Currently0 (1 standard drink = 0.6 oz pure alcohol)CommentsUnknownSex and Gender InformationValueDate Recorded Sex Assigned at IlodbOxqlyh46/04/2025 1:47 PM EDTLegal EkuXhsnwp69/15/2025 1:48 PM EDTGender ZddizjizZyunif42/04/2025 1:47 PM EDTSexual OrientationHeterosexual or Yhginrxh25/04/2025 1:47 PM EDT Last Filed Vital Signs Vital SignReadingTime TakenCommentsBlood Fqygcqmv174/9202/10/2025 10:34 AM EDT Xfhud82157/19/2025 10:34 AM EDTTemperature--Respiratory Rate--Oxygen Saturation 96%02/10/2025 10:34 AM EDTInhaled Oxygen Concentration--Uzakwj85.6 kg (213 lb) 02/10/2025 10:34 AM EJQTuummo938.9 cm (5' 1 )02/10/2025 10:34 AM EDTBody Mass Index40.25002/10/2025 10:34 AM EDT Plan of Treatment DateTypeDepartmentCare Team (Latest Contact Info)Udalmldvkpz12/07/2025 9:00 AM ESTOffice Visit [facility] [address] [place] [address] Shala Mcleod MD [address] [place] [address] Health MaintenanceDue DateLast DoneCommentsCT Rmuboszwoiec1956olonoscopy 1956Diabetes: Hemoglobin A1C1956FOBT1956Medicare Annual Wellness (AWV)1955 3255Yydevcghnswdu1956Diabetes: Retinopathy Screening 1966Depression Grkiipltr58/14/1968Diabetes: Urine Protein Screening 1975Pneumococcal Vaccine: 50+ Years (1 of 2 - PCV)1975Adult Tetanus 1978Zoster Vaccines (1 of 2)05/07/20060895Vtwjgagvh38Fall Risk Cslraimlc16/14/2661NNF80/29/OVID-19 Vaccine ( - season)512/01/2021, 09/27/2020, 09/05/2020Influenza Vaccine (#1) 2025olorectal Cancer Avekrgevz67/29/2026FIT-DNA/HIB VaccinesAged OutNo longer eligible based on patient's age to complete this topic HPV VaccinesAged OutNo longer eligible based on patient's age to complete this topicIPV VaccinesAged OutNo longer eligible based on patient's age to complete this topicMeningococcal B VaccineAged OutNo longer eligible based on patient's age to complete this topicMeningococcal VaccineAged OutNo longer eligible based on patient's age to complete this topicRotavirus VaccinesAged OutNo longer eligible based on patient's age to complete this topic Procedures Procedure NamePriorityDate/TimeAssociated DiagnosisCommentsECG 12-LEADRoutine 02/10/2025 2:27 PM EDT SVT (supraventricular tachycardia) Chronic combined systolic and diastolic heart failure (CMS/HCC) ECG 12 LEAD UNIT ZUANECBSAGudwdfk35/19/2025 11:09 AM EDT SVT (supraventricular tachycardia) COMPLETE TRANSTHORACIC ECHO (TTE) W/WO IMAGING AGENT, STRAIN, 3D, BUBBLE STUDY Pgiderp7902/10/2025 11:00 AM EDTfrom Last 3 Months Results * ECG 12 lead (02/10/2025 2:27 PM EDT)Specimen (Source)Anatomical Location / LateralityCollection Method / VolumeCollection TimeReceived Time Narrative Shala Mcleod MD - 02/10/2025 2:27 PM EDT sinus tachycardia, heart rate 107 bpm, left axis deviation, left ventricular hypertrophy with repolarization abnormality, abnormal EKG Authorizing ProviderResult TypeResult StatusShala LUNA ORDERABLESFinal Result * ECG 12 lead unit performed (02/10/2025 11:09 AM EDT)Specimen (Source) Anatomical Location / LateralityCollection Method / VolumeCollection Time Received Time Narrative Authorizing ProviderResult TypeResult Lyubov LUNA ORDERABLESFinal Result * Complete Echo (TTE) w/wo Imaging Agent, Strain, 3D, Bubble Study (02/10/2025 11:00 AM EDT)Anatomical RegionLateralityModalityUltrasound Narrative Authorizing ProviderResult TypeResult StatusHistorical Provider [facility] ECHO PROCEDURESFinal Result from Last 3 [place] [id number] Care Teams Team MemberRelationshipSpecialtyStart DateEnd Date Brandy Moulton MD [address] [place] [phone] PCP - GeneralFamily Medicine01/09/25
--- OUTSIDE RECORDS SUMMARY | 2025-03-30 19:39 | XMS_ITS | Clinical Summary ---
Author Organization [facility] Address [address] [place] [address] Care Team Providers Care Adjunct Spanish Instructor Name Role Phone Brandy Moulton MD Primary Care Provider Allergies Active AllergyReactionsCriticalityNoted JbddOrjaojhxRrambce29/16/2019 Other Reaction(s): ulcer EbphabzsbxNxrnhzdfp37/01/2023Sulfamethoxazole-Atoiwmztgfnz28/16/2019 Other Reaction(s): vomitting / diarrhea OiyvsvedGinijygvw30/01/2023 Medications MedicationSigDispense QuantityRefillsLast FilledStart DateEnd DateStatus allopurinol (Zyloprim) 300 MG tablet Take 300 mg by mouth in the morning.08/03/2022ctive buPROPion XL (Wellbutrin XL) 150 MG 24 hr tablet Take 150 mg by mouth 1 (one) time each day at the same time.Active hydroCHLOROthiazide (HYDRODiuril) 25 MG tablet Take 25 mg by mouth in the morning.Active metFORMIN (Glucophage) 500 MG tablet Take 500 mg by mouth in the morning. Take with meals.09/18/2022ctive Family History Medical HistoryRelationNameCommentsMultiple myelomaBrotherCancerMotherDiabetes MotherMultiple myelomaMotherBreast cancerSisterDiabetesSisterHeart diseaseSister RelationNameStatusCommentsBrotherFatherDeceasedMotherDeceasedSister Social History Tobacco UseTypesPacks/DayYears UsedDateSmoking Tobacco: NeverPassive Smoke Exposure: NeverSmokeless Tobacco: Never Tobacco Cessation:Counseling Given: Not Answered Alcohol UseStandard Drinks/WeekCommentsNever0 (1 standard drink = 0.6 oz pure alcohol)CommentsUnknownSex and Gender InformationValueDate RecordedSex Assigned at BirthNot on fileLegal WqaDpoewo07/15/2023 8:00 PM EDTGender Identity Not on fileSexual OrientationNot on file Last Filed Vital Signs Vital SignReadingTime TakenCommentsBlood Nrjirzft867/7703/07/2021 12:00 PM EDT Pulse--Temperature--Respiratory Rate--Oxygen Saturation--Inhaled Oxygen Concentration--Bsezas143 kg (234 lb)01/01/2023 8:32 AM RCGPvkncx601.9 cm (5' 1 ) 10/23/2022 8:29 AM EDTBody Mass Index44.21010/23/2022 8:29 AM EDT Plan of Treatment Not on file Insurance [employer] [id number] Care Teams Team MemberRelationshipSpecialtyStart DateEnd Brandy Moulton MD [address] [place] [phone] [facility]
--- OUTSIDE RECORDS SUMMARY | 2025-03-30 19:39 | XMS_ITS | Encounter Summary ---
Author Organization [facility] Address [address] [place] [address] Care Team Providers Care Hanging Flags Decorator Name Role Phone Brandy Moulton MD Primary Care Provider [phone] Encounter Details DateTypeDepartmentCare Team (Latest Contact Info)Dhxrpjttjlu65/23/2025Telephone [facility] [address] [place] [address] Deepika Lino MA Social History Tobacco UseTypesPacks/DayYears UsedDateSmoking Tobacco: NeverSmokeless Tobacco: NeverAlcohol UseStandard Drinks/WeekCommentsNot Currently0 (1 standard drink = 0.6 oz pure alcohol)CommentsUnknownSex and Gender InformationValueDate RecordedSex Assigned at DprieBpbntq05/04/2025 1:47 PM EDTLegal SexFemale 01/06/2025 1:48 PM EDTGender NnatiersJmkczq08/04/2025 1:47 PM EDTSexual OrientationHeterosexual or Hjemytzc60/04/2025 1:47 PM EDTdocumented as of this encounter Miscellaneous Notes * Telephone Encounter - Deepika Lino MA - 03/16/2025 10:16 AM EDT MD Deepika Piper MA Labs look good except glucose which is high. Please make sure that patient has follow-up appointment if she is willing to continue with us LVM to advise patient of her lab results per Dr. Ackerman request. Patient has a follow up appointment on 03/31/2025 documented in this encounter Plan of Treatment DateTypeDepartmentCare Team (Latest Contact Info)Nepnhfkwyot26/07/2025 9:00 AM ESTOffice Visit [facility] [address] [place] [address] Shala Mcleod MD [address] [place] [address] documented as of this encounter Visit Diagnoses Not on filedocumented in this encounter Care Teams Team MemberRelationshipSpecialtyStart DateEnd Date Brandy Moulton MD [facility] [place] [address] PCP - GeneralFamily Medicine01/09/25documented as of this encounter
--- OUTSIDE RECORDS SUMMARY | 2025-03-30 19:39 | XMS_ITS | Clinical Summary ---
Author Organization [facility] Address [address] [place] [address] Care Team Providers Care Machine Repairman Name Role Phone Unavailable Primary Care Provider Unavailabl e Social History Tobacco UseTypesPacks/DayYears UsedDateSmoking Tobacco: Never Assessed CommentsUnknownSex and Gender InformationValueDate RecordedSex Assigned at Not on fileLegal AnhIruazp80/24/2014 10:12 PM EDTGender IdentityNot on file Sexual OrientationNot on file Plan of Treatment Not on file
--- OUTSIDE RECORDS SUMMARY | 2025-03-30 19:39 | XMS_ITS | Clinical Summary ---
Author Organization [employer] [facility] tem Address [facility] [place] [address] Care Team Providers Care Research Instructor Name Role Phone Brandy Moulton MD Primary Care Provider [phone] Allergies Active AllergyReactionsCriticalityNoted KzfxOumuvamkPgpyzhw62/16/2019 Sulfamethoxazole-Znfwiekgxdla19/16/2019 Medications MedicationSigDispense QuantityRefillsLast FilledStart DateEnd DateStatus metFORMIN XR (GLUCOPHAGE-XR) 500 mg 24 hr tablet Take 2 tablets (1,000 mg total) by mouth in the morning and 2 tablets (1,000 mg total) in the evening.07/30/2018Active metoprolol succinate XL (TOPROL XL) 50 mg 24 hr tablet Take 1 tablet (50 mg total) by mouth in the morning.Active valsartan (DIOVAN) 40 mg tablet Indications:chronic heart failureTake 1 tablet (40 mg total) by mouth in the morning. Indications: chronic heart failure.Active gabapentin (NEURONTIN) 100 mg capsule Take 1 capsule (100 mg total) by mouth in the morning and 1 capsule (100 mg total) in the evening.5Active rosuvastatin (CRESTOR) 5 mg tablet Take 1 tablet (5 mg total) by mouth in the morning.5Active RYBELSUS 7 mg tablet Take 7 mg by mouth in the morning.Active HYDROcodone-acetaminophen (NORCO) 5-325 mg per tablet Take 1 tablet by mouth every 4 (four) hours as needed.5Active pregabalin (LYRICA) 25 mg capsule Take 1 capsule (25 mg total) by mouth 2 (two) times a day as needed.12/09/2024 Active dapagliflozin propanediol (FARXIGA) 10 mg tablet Indications:Acute on chronic combined systolic and diastolic congestive heart failure (CMS-HCC)Take 1 tablet (10 mg total) by mouth in the morning. 30 tablet 5Active furosemide (LASIX) 40 mg tablet Take 1 tablet (40 mg total) by mouth daily. 30 tablet 5Active spironolactone (ALDACTONE) 25 mg tablet Take 1 tablet (25 mg total) by mouth in the morning. 30 tablet 5Active Active Problems ProblemNoted DateDiagnosed DateAcute respiratory failure with shftptq0502/22/2025 Diabetes mellitus without hwoemzaucvwr20/16/2019Essential hypertension, benign 08/07/20182113Pkugkgalembdat75/16/2019Situational uzvmgayqeg49/16/2019 Encounters DateTypeDepartmentCare MehcFrlwudxmkbj29/01/2025 1:21 AM EDT - 02/23/2025 3:50 PM EDTHospital Encounter [facility] [address] [place] [address] Refugio Li MD Asif, Muhamid M, MD Acute respiratory failure with hypoxia (CMS-HCC) (Primary Dx); Acute on chronic combined systolic and diastolic congestive heart failure (CMS-HCC) Discharge Disposition: Home02/22/2025Travelfrom Last 3 Months Family History Medical HistoryRelationNameCommentsMultiple myelomaBrotherMultiple myelomaMother Breast cancerSisterDiabetesSisterRelationNameStatusCommentsBrotherFatherDeceased MotherDeceasedSister Social History Tobacco UseTypesPacks/DayYears UsedDateSmoking Tobacco: NeverSmokeless Tobacco: NeverAlcohol UseStandard Drinks/WeekCommentsNo0 (1 standard drink = 0.6 oz pure alcohol)[facility] UtilitiesAnswerDate RecordedIn the past 12 months has the [employer], gas, oil, or water [employer] threatened to shut off services in your home?No 02/22/2025UDIT-CAnswerDate RecordedFrequency of Alcohol ConsumptionNever 08/07/2018Average Number of DrinksNot on file08/07/2018Frequency of Binge DrinkingNot on file08/07/2018PHQ-2AnswerDate RecordedTotal Hkeoj623 PRAPARE - TransportationAnswerDate RecordedIn the past 12 months, has lack of transportation kept you from medical appointments or from getting medications?No 02/22/2025In the past 12 months, has lack of transportation kept you from meetings, work, or from getting things needed for daily living?No02/22/2025 Housing InstabilityAnswerDate RecordedAre you worried or concerned that in the next two months you may not have stable housing that you own, rent or stay in as a part of a household?No5ChildcareAnswerDate RecordedChildcareUnknown 11/03/2018EmploymentAnswerDate AslfikjoDxmonjbpprNgzugdz69/12/2019Hunger ScreeningAnswerDate RecordedWithin the past 12 months we worried whether our food would run out before we got money to buy more.Never True02/22/2025Within the past 12 months the food we bought just didn't last and we didn't have money to get more.Never True02/22/2025Purpose - LifeAnswerDate RecordedPurpose and direction in mtxnQasvspq37/11/2021CommentsNoSex and Gender Information ValueDate RecordedSex Assigned at BirthNot on fileLegal RcfWmyadi10/06/2015 12:07 PM EDTGender IdentityNot on fileSexual OrientationNot on file Last Filed Vital Signs Vital SignReadingTime TakenCommentsBlood Kuwkgryz227/7302/23/2025 12:01 PM EDT Lcdsh084702/23/2025 12:01 PM YCGZdsvxrdcfof88.5 ??C (97.7 ??F)02/23/2025 12:01 PM EDTRespiratory Pdho844602/23/2025 12:01 PM EDTOxygen Aeafwprahc50%02/23/2025 12:01 PM EDTInhaled Oxygen Concentration--Iojyle55.8 kg (213 lb 4.8 oz)02/23/2025 4:41 AM ZEMFdutja670.9 cm (5' 1 )02/22/2025 3:11 AM EDTBody Mass Index40.310 3:11 AM EDT Plan of Treatment Health MaintenanceDue DateLast DoneCommentsStatin Use: Hcncujhqexzfzd1956 Depression Eduvlhslj46/14/1968Adult BMI Follow Up Plan1974DTaP,Tdap and Td Vaccines (1 - Tdap)1975Zoster (Shingles) Vaccine (1 of 2)2006RSV ( or age 60+ yrs) (1 - Risk 60-74 years 1-dose series)2016 Ecnupmohe48Fall Risk Rnibuaxhf28/14/2021OVID-19 Vaccine ( season)/01/2021, 09/27/2020, 09/05/2020Influenza Vaccine 01/23/2025Tobacco Fflqdyclt89dult BMI Zzeredlax78/02/2026 02/23/2025 Medical Devices Not on file Procedures Procedure NamePriorityDate/TimeAssociated DiagnosisCommentsEXTRA TUBES BLUE TOP Knolfmv2302/23/2025 4:33 AM EDT EXTRA AGOFPSevdyyp74/02/2025 4:33 AM EDT CBC WITH AUTO OPLUVPVPNACPFpnsrmd39/02/2025 4:33 AM EDT JQQGMWKWMPcvxxdq62/02/2025 4:33 AM EDT COMPREHENSIVE METABOLIC GGUCLSmsowbv28/02/2025 4:33 AM EDT TROPONIN I, HIGH PDBQUZLBREOKUFF37/02/2025 4:33 AM EDT TROPONIN I, HIGH JUHLDFWRFDMWREP28/01/2025 8:37 PM EDT TROPONIN I, HIGH FJNKESFYZOKNRDY67/01/2025 12:44 PM EDT GJTPDJOMCHglxzfz65/01/2025 12:44 PM EDT SMDNVXUUJPqbdrem67/01/2025 12:44 PM EDT VGTZWRGHBTRGsuwsfr30/01/2025 12:00 PM EDTTROP I, HIGH SENSITIVITY 3 HOURRoutine 02/22/2025 10:02 AM EDT BZDQOGAXNGNLhkvboj00/01/2025 8:00 AM EDTTROP I, HIGH SENSITIVITY 1 HOURSTAT 02/22/2025 2:33 AM EDT XR CHEST 1 DOREHK5502/22/2025 1:45 AM EDT PM ED CRITICAL FTZIYpajwok00/01/2025 1:30 AM EDT PCOKFTIKQJCUjmpqwa52/01/2025 1:29 AM YTSOXYOCBBRICGOsxmggl67/01/2025 1:29 AM EDT TROPONIN I, HIGH SENSITIVITY 0 YYVBWPFE00/01/2025 1:27 AM EDT TROPONIN I, HIGH SENSITIVITY 0 RIYFZINL05/01/2025 1:27 AM EDT KQTMFPNGYCEAH48/01/2025 1:27 AM EDT D-QFCOSONYQ38/01/2025 1:27 AM EDT B-TYPE NATRIURETIC JNSZJNECZSL31/01/2025 1:27 AM EDT BASIC METABOLIC XEPTATVCU04/01/2025 1:27 AM EDT CBC WITH AUTO QVCYLGVRYYABLCGA90/01/2025 1:27 AM EDT SARS/FLU A+B/RSV BY NAAT/MOLECULAR (M4RT COLLECTION TUBE)STAT1 1:27 AM EDT ECG 12-ZIHVUKID18/01/2025 1:23 AM EDT from Last 3 Months Results * Light Blue Top (02/23/2025 4:33 AM EDT)ComponentValueRef RangeTest Method Analysis TimePerformed AtPathologist SignatureExtra TubeAuto Resulted 02/23/2025 6:03 AM [facility] (Source) Anatomical Location / LateralityCollection Method / VolumeCollection Time Received TimeBloodVenous blood / Rwhyigp1002/23/2025 4:33 AM EDT1 5:07 AM EDT Narrative Authorizing ProviderResult TypeResult StatusMuhamid M Sharad MDLAB BLOOD ORDERABLESFinal ResultPerforming OrganizationAddressCity/State/ZIP CodePhone Number [facility] [address] * (ABNORMAL) Troponin I, High Sensitivity (02/23/2025 4:33 AM EDT) Only the most recent of3 resultswithin the time period is included. ComponentValueRef RangeTest MethodAnalysis TimePerformed AtPathologist Signature TROPONIN I, HIGH ILJQUTRXSCO649(H)<16 ng/L1 5:36 AM [facility] (Source)Anatomical Location / Laterality Collection Method / VolumeCollection TimeReceived TimeBlood (Other)Venipuncture / Mxjptex0802/23/2025 4:33 AM EDT1 5:03 AM EDT Narrative [facility] - 02/23/2025 5:36 AM EDT Elevations of hs-Troponin may be due to causes other than myocardial ischemia. Recommend serial hs-Troponin testing be performed. For the initial evaluation and management of chest pain patients, refer to the algorithms linked below. Emergency Patient: [email or web address] Inpatient: [email or web address] Authorizing ProviderResult TypeResult StatusTaeler Herb BEHAVIORAL PEDIATRICIAN-CNPLAB BLOOD ORDERABLESFinal ResultPerforming OrganizationAddressCity/State/ZIP CodePhone Number [facility] [address] [place] [address], * (ABNORMAL) CBC auto differential (02/23/2025 4:33 AM EDT) Only the most recent of2 resultswithin the time period is included. ComponentValueRef RangeTest MethodAnalysis TimePerformed AtPathologist Signature WBC12.0(H)4 - 11 x10E9/L10 5:08 AM EDTPADENA HEALTH SYSTEMRBC Count4.623.8 - 5.2 X10E12/L1 5:08 AM [facility]ENTERHemoglobin12.511.7 - 15.5 g/dL02/23/2025 5:08 AM EDREG[facility]LEVEL[facility] EASTHematocrit37.635 - 47 %02/23/2025 5:08 AM EDTPADENA HEALTH SYSTEMMCV8180 - 100 fL02/23/2025 5:08 AM EDTPADENA HEALTH SYSTEMMCH27.027 - 34 pg02/23/2025 5:08 AM EDTPADENA HEALTH SYSTEMMCHC33.232 - 36 g/dL02/23/2025 5:08 AM [facility]ENTERRDW14.211.5 - 15 %02/23/2025 5:08 AM EDREGENCY HOS[facility]LEVEL[facility] EASTPlatelet Vcpcb054638 - 450 X10E9/L1 5:08 AM EDT [facility]MPV8.97 - 12 fL02/23/2025 5:08 AM EDT [facility]ITALNeutrophils %77.7%02/23/2025 5:08 AM EDT [facility]ALLymphocytes %15.0%02/23/2025 5:08 AM EDT [facility]ITALMonocytes %6.6%02/23/2025 5:08 AM EDT [facility]ALEosinophils %0.2%02/23/2025 5:08 AM EDT [facility]Basophils %0.5%02/23/2025 5:08 AM EDT [facility]ITALNeutrophils Absolute (A)9.4(H)1.5 - 6.6 10*3/uL02/23/2025 5:08 AM EDREGENCY HOSPITAL CLEVEL[facility] EASTLymphocytes Absolute1.81.0 - 3.5 10*3/uL02/23/2025 5:08 AM EDTPADENA HEALTH SYSTEMMonocytes Absolute0.80.0 - 0.9 10*3/uL02/23/2025 5:08 AM [facility]EREosinophils Absolute0.00.0 - 0.4 10*3/uL02/23/2025 5:08 AM [facility]ENTERBasophils Absolute0.10.0 - 0.2 10*3/uL 02/23/2025 5:08 AM [facility]ENTERDifferential Type AUTOMATED BNASHDMHEGFJ02/02/2025 5:08 AM [facility] Specimen (Source)Anatomical Location / LateralityCollection Method / Volume Collection TimeReceived TimeBloodVenous blood / UnknownVenipuncture / Unknown 02/23/2025 4:33 AM EDT1 5:02 AM EDT Narrative Authorizing ProviderResult TypeResult StatusMadison Petr Martel BEHAVIORAL PEDIATRICIAN-CNPLAB BLOOD ORDERABLESFinal ResultPerforming OrganizationAddressCity/State/ZIP Code Phone Number [facility] [address] [place] [address], * Magnesium (02/23/2025 4:33 AM EDT) Only the most recent of3 resultswithin the time period is included. ComponentValueRef RangeTest MethodAnalysis TimePerformed AtPathologist Signature MAGNESIUM2.01.8 - 2.6 mg/dL02/23/2025 5:28 AM [facility] (Source)Anatomical Location / LateralityCollection Method / VolumeCollection TimeReceived TimeBlood (Other)Venipuncture / Dnkoyby9102/23/2025 4:33 AM EDT1 5:03 AM EDT Narrative Authorizing ProviderResult TypeResult StatusMadison Petr Martel BEHAVIORAL PEDIATRICIAN-CNPLAB BLOOD ORDERABLESFinal ResultPerforming OrganizationAddressCity/State/ZIP Code Phone Number [facility] [address] [place] [address], * (ABNORMAL) Comprehensive metabolic panel (02/23/2025 4:33 AM EDT)Component ValueRef RangeTest MethodAnalysis TimePerformed AtPathologist SignatureSODIUM 902673 - 146 mmol/L1 5:28 AM [facility] POTASSIUM3.93.5 - 5.0 mmol/L1 5:28 AM [facility]ENTERCHLORIDE10498 - 109 mmol/L1 5:28 AM EDREGENCY HOS[facility]LEVELAND EASTCARBON OKTJGDO9088 - 32 mmol/L1 5:28 AM EDREGENCY HOSPITAL CLEVELAND EASTANION QWA497 - 15 mmol/L1 5:28 AM EDT [facility]ITALBLOOD UREA FGCZIJAN226 - 27 mg/dL02/23/2025 5:28 AM [facility]ENTERCREATININE0.750.40 - 1.00 mg/dL 02/23/2025 5:28 AM [facility]ENTERComment:METHOD TRACEABLE TO IDMS AIIEQLZLSGHLHPP101(H)65 - 99 mg/dL02/23/2025 5:28 AM EDT [facility]ITALCALCIUM9.28.5 - 10.5 mg/dL02/23/2025 5:28 AM [facility]ENTERTOTAL PROTEIN7.06.0 - 8.0 g/dL 02/23/2025 5:28 AM [facility]ENTERALBUMIN3.53.2 - 5.3 g/dL02/23/2025 5:28 AM EDREGENCY HOSPITAL CLEVELAND EASTALKALINE KCPPCNYAPHY4687 - 130 U/L1 5:28 AM [facility]ENTERAST33<=41 U/L1 5:28 AM [facility] ALT60(H)<=31 U/L1 5:28 AM [facility] BILIRUBIN,TOTAL1.10.3 - 1.2 mg/dL02/23/2025 5:28 AM [facility] CENTEREGFR Non-Race Utdcbdnjo17>=60 ml/min/1.73sq.m1 5:28 AM [facility]ENTERComment: eGFR not reported due to non-numeric value for Creatinine. Reported eGFR is based on the CKD-EPI 2020 equation that does not use a race coefficient. Specimen (Source)Anatomical Location / LateralityCollection Method / Volume Collection TimeReceived TimeBlood (Other)Venipuncture / Vacsapr7502/23/2025 4:33 AM EDT1 5:03 AM EDT Narrative Authorizing ProviderResult TypeResult StatusMadison Petr Martel BEHAVIORAL PEDIATRICIAN-CNPLAB BLOOD ORDERABLESFinal ResultPerforming OrganizationAddressCity/State/ZIP Code Phone Number [address] [place] [address], * Potassium (02/22/2025 12:44 PM EDT)ComponentValueRef RangeTest MethodAnalysis TimePerformed AtPathologist SignaturePOTASSIUM4.13.5 - 5.0 mmol/L1 1:03 PM [facility]pecimen (Source)Anatomical Location / LateralityCollection Method / VolumeCollection TimeReceived Time BloodVenous blood / UnknownVenipuncture / Mmuzxea1202/22/2025 12:44 PM EDT 02/22/2025 12:49 PM EDT Narrative Authorizing ProviderResult TypeResult StatusMuhamkolton Orourke MDLAB BLOOD ORDERABLESFinal ResultPerforming OrganizationAddressCity/State/ZIP CodePhone Number [address] [place] [address], [place] * (ABNORMAL) Troponin I, High Sensitivity 3 Hour (02/22/2025 10:02 AM EDT) ComponentValueRef RangeTest MethodAnalysis TimePerformed AtPathologist SignatureTROPONIN I, HIGH JZTVHTKXWKP568(H)<16 ng/L1 11:11 AM EDT [facility] (Source)Anatomical Location / LateralityCollection Method / VolumeCollection TimeReceived TimeBloodVenous blood / UnknownVenipuncture / Nmuunba4902/22/2025 10:02 AM EDT1 10:05 AM EDT Narrative [facility] - 02/22/2025 11:11 AM EDT Elevations of hs-Troponin may be due to causes other than myocardial ischemia. Recommend serial hs-Troponin testing be performed. For the initial evaluation and management of chest pain patients, refer to the algorithms linked below. Emergency Patient: [email or web address] Inpatient: [email or web address] Authorizing ProviderResult TypeResult StatusTaeler Herb FITZGERALDN-CNPLAB BLOOD ORDERABLESFinal ResultPerforming OrganizationAddressCity/State/ZIP CodePhone Number [facility] [address] [place] [address], [place] * (ABNORMAL) Troponin I, High Sensitivity 1 Hour (02/22/2025 2:33 AM EDT) ComponentValueRef RangeTest MethodAnalysis TimePerformed AtPathologist SignatureTROPONIN I, HIGH JGRFXJEVUHP65(H)<16 ng/L1 3:02 AM EDT [facility] (Source)Anatomical Location / LateralityCollection Method / VolumeCollection TimeReceived TimeBloodVenous blood / UnknownVenipuncture / Ajbreno8302/22/2025 2:33 AM EDT1 2:35 AM EDT Narrative [facility] - 02/22/2025 3:02 AM EDT Elevations of hs-Troponin may be due to causes other than myocardial ischemia. Recommend serial hs-Troponin testing be performed. For the initial evaluation and management of chest pain patients, refer to the algorithms linked below. Emergency Patient: [email or web address] Inpatient: [email or web address] Authorizing ProviderResult TypeResult StatusRefugio Li MDLAB BLOOD ORDERABLES Final ResultPerforming OrganizationAddressCity/State/ZIP CodePhone Number [facility] [address] [place] [address], * X-ray chest 1 view (02/22/2025 1:45 AM EDT)Anatomical RegionLateralityModality Body, ChestN/AComputed RadiographySpecimen (Source)Anatomical Location / LateralityCollection Method / VolumeCollection TimeReceived Time02/22/2025 1:47 AM EDT Narrative 02/22/2025 1:56 AM EDT XR CHEST 1 VW HISTORY: Shortness of breath COMPARISON: Chest radiograph 07/11/2016. FINDINGS: The trachea is midline. Prominent cardiac mediastinal silhouette. ?? No pneumothorax. Interval development of pulmonary vascular congestion with interstitial and early alveolar pulmonary edema. Trace bilateral pleural effusions. IMPRESSION: * ??Interval development of pulmonary vascular congestion and interstitial/early alveolar pulmonaryedema. ??Superimposed infectious process not excluded. * ??Trace bilateral pleural effusions. Approved by Resident Bk Santillan MD ??on 02/22/2025 1:47 AM I, Neel Avila MD have personally reviewed the image(s) and agree with and/or edited the report Finalized by Neel Avila MD on 02/22/2025 1:56 AM Procedure Note Neel Avila MD - 02/22/2025 XR CHEST 1 VW HISTORY: Shortness of breath COMPARISON: Chest radiograph 07/11/2016. FINDINGS: The trachea is midline. Prominent cardiac mediastinal silhouette. No pneumothorax. Interval development of pulmonary vascular congestionwith interstitial and early alveolar pulmonary edema. Trace bilateralpleural effusions. IMPRESSION: * Interval development of pulmonary vascular congestion andinterstitial/early alveolar pulmonary edema. Superimposed infectiousprocess not excluded. * Trace bilateral pleural effusions. Approved by Resident Bk Santillan MD on 02/22/2025 1:47 AM I, Neel Avila MD have personally reviewed the image(s) and agree withand/or edited the report Finalized by Neel Avila MD on 02/22/2025 1:56 AM Authorizing ProviderResult TypeResult Trevor Li MDIMG DIAGNOSTIC IMAGING ORDERABLESFinal Result * Critical Care (02/22/2025 1:30 AM EDT) Narrative Refugio Li MD - 02/22/2025 1:30 AM EDT Refugio Li MD 02/22/2025 2:28 AM Critical Care Performed by: Refugio Li MD Authorized by: Refugio Li MD ?? Critical care provider statement: ??Critical care time (minutes): ??35 ??Critical care time was exclusive of: ??Separately billable procedures and treating other patients and teaching time ??Critical care was necessary to treat or prevent imminent or life-threatening deterioration of the following conditions: ??Cardiac failure and respiratory failure ??Critical care was time spent personally by me on the following activities: ??Blood draw for specimens, development of treatment plan with patient or surrogate, evaluation of patient's response to treatment, examination of patient, interpretation of cardiac output measurements, obtaining history from patient or surrogate, review of old charts, re-evaluation of patient's condition, pulse oximetry, ordering and review of radiographic studies, ordering and review of laboratory studies and ordering and performing treatments and interventions ??I assumed direction of critical care for this patient from another provider in my specialty: no ?Care discussed with: admitting provider ?? Authorizing ProviderResult TypeResult Trevor Li MDPROCEDURE/MINOR SURGICAL ORDERABLESFinal Result * Troponin I, High Sensitivity 0 Hour (02/22/2025 1:27 AM EDT)ComponentValueRef RangeTest MethodAnalysis TimePerformed AtPathologist SignatureTROPONIN I, HIGH HQDMIFXFNYP43<16 ng/L1 2:03 AM [facility] Specimen (Source)Anatomical Location / LateralityCollection Method / Volume Collection TimeReceived TimeBloodVenous blood / Refuyuc3302/22/2025 1:27 AM EDT 02/22/2025 1:33 AM EDT Narrative Authorizing ProviderResult TypeResult StatusRefugio ROMERO BLOOD ORDERABLES Final ResultPerforming OrganizationAddressCity/State/ZIP CodePhone Number [facility] [address] [place] [address], * SARS/FLU A+B/RSV by NAAT/Molecular (M4RT Collection Tube) (02/22/2025 1:27 AM EDT)ComponentValueRef RangeTest MethodAnalysis TimePerformed AtPathologist SignatureFLU A FJIMlozwfmlRpkxqgnj63/01/2025 2:13 AM EDTPADENA HEALTH SYSTEMFLU B KRINwnblwypMnqcbfyd43/01/2025 2:13 AM EDREGENCY HOSPITAL [facility]LEVELAND EASTRSV BY DFDUpkogsjvVzexrckj46/01/2025 2:13 AM EDT [facility]ARS COV 2 BY PCRNot DetectedNot Detected 02/22/2025 2:13 AM [facility] (Source) Anatomical Location / LateralityCollection Method / VolumeCollection Time Received TimeSwabNasopharyngeal structure / Qfqztmp7302/22/2025 1:27 AM EDT 02/22/2025 1:33 AM EDT Narrative [facility] - 02/22/2025 2:13 AM EDT The Xpert Xpress SARS-CoV-2/Flu/RSV Plus test is a rapid, multiplexed real-time RT-PCR test intended for the simultaneous qualitative detection and differentiation of SARS-CoV-2, influenza A, influenza B and respiratory syncytial virus (RSV) viral RNA from individuals suspected of respiratory viral infection consistent with COVID-19 by Their healthcare provider. This test has not been validated in asymptomatic patients. The Xpert Xpress SARS-CoV-2 test is intended for use by qualified and trained operators who are performing tests using either GeneXBuzzSpice DX or GeneSocialMatica systems and is limited to laboratories that meet the CLIA requirements to perform high and moderate complexity tests. The Xpert Xpress SARS-CoV-2/Flu/RSV Plus is only for use under the Food and Drug Administration's Emergency Use Authorization. Results are for the simultaneous detection and differentiation of SARS-CoV-2, influenza A, influenza B and RSV nucleic acids in clinical specimens. SARS-CoV-2, influenza A, influenza B and RSV RNA identified by this test are generally detectable in upper respiratory samples during the acute phase of infection. Positive results are Indicative of the presence of the identified virus, but do not rule out bacterial infection or co-infection with other pathogens not detected by this test. Clinical correlation with patient history and other diagnostic information is necessary to determine patient infection status. The agent detected may not be the definite cause of disease. Negative results do not preclude SARS-CoV-2, influenza A, influenza B and RSV infection and should not be used as the sole basis for treatment or other patient management decisions. Negative results must be combined with clinical observations, patient history and epidemiological information. An Invalid result may occur with specimen-associated inhibition unable to be resolved with specimen repeat. Fact Sheet for Healthcare Providers: ?? https://www.fda.gov/media/493489/download ? Fact Sheet for Patients: ?? https://www.fda.gov/media/119835/download ?? Authorizing ProviderResult TypeResult StatusRefugio Li [facility]ST CAMPUSICROBIOLOGY - GENERAL ORDERABLESFinal ResultPerforming OrganizationAddressCity/State/ZIP Code Phone Number [facility] [address] [place] [address], * (ABNORMAL) D-Dimer (02/22/2025 1:27 AM EDT)ComponentValueRef RangeTest Method Analysis TimePerformed AtPathologist SignatureD KCRMU289(H)1 - 255 ng/mL 02/22/2025 1:47 AM EDTPROMEDMISSION BAY CAMPUSComment:Results >255 ng/mL DDU: Results may be indicative of the presence of VTE. The use of the Wells score and further diagnostic tests should be considered. Elevated D- Dimer levels can be associated with DIC, neoplasm, , trauma and liver disease. Elevated levels of rheumatoid factor may leadto an overestimation of the D-Dimer level.Specimen (Source)Anatomical Location / LateralityCollection Method / VolumeCollection TimeReceived TimeBloodVenous blood / Unknown 02/22/2025 1:27 AM EDT1 1:33 AM EDT Narrative Authorizing ProviderResult TypeResult StatusRefugio ROMERO BLOOD ORDERABLES Final ResultPerforming OrganizationAddressCity/State/ZIP CodePhone Number [address] [place] [address], [place] * (ABNORMAL) B-type natriuretic peptide (02/22/2025 1:27 AM EDT)ComponentValue Ref RangeTest MethodAnalysis TimePerformed AtPathologist CsxcjvhugKRY762(H) <=100 pg/mL02/22/2025 2:22 AM [facility]pecimen (Source)Anatomical Location / LateralityCollection Method / VolumeCollection TimeReceived TimeBloodVenous blood / Nqwnbyq7602/22/2025 1:27 AM EDT1 1:33 AM EDT Narrative Authorizing ProviderResult TypeResult StatusRefugio ROMERO BLOOD ORDERABLES Final ResultPerforming OrganizationAddressty/State/ZIP CodePhone Number [address] [place] [address], [place] * (ABNORMAL) Basic Metabolic Panel (02/22/2025 1:27 AM EDT)ComponentValueRef RangeTest MethodAnalysis TimePerformed AtPathologist ZsucftjblBLQJXX028994 - 146 mmol/L1 1:51 AM EDTPADENA [facility]ALTH SYSTEMPOTASSIUM 3.83.5 - 5.0 mmol/L1 1:51 AM [facility] ZPSIJYCR92029 - 109 mmol/L1 1:51 AM EDTPADENA HEALTH SYSTEMCARBON UBDOXKI1453 - 32 mmol/L1 1:51 AM EDTPADENA HEALTH SYSTEMANION GAP95 - 15 mmol/L1 1:51 AM [facility]BLO[facility] UREA KUJWBLTY237 - 27 mg/dL02/22/2025 1:51 AM [facility]ENTERCREATININE0.780.40 - 1.00 mg/dL 02/22/2025 1:51 AM [facility]ENTERComment:METHOD TRACEABLE TO IDMS MMRNKNRXTOBOFCW350(H)65 - 99 mg/dL02/22/2025 1:51 AM EDT [facility]UM8.78.5 - 10.5 mg/dL02/22/2025 1:51 AM [facility] CENTEREGFR Non-Race Sopjzengb06>=60 ml/min/1.73sq.m1 1:51 AM [facility] Comment: eGFR not reported due to non-numeric value for Creatinine. Reported eGFR is based on the CKD-EPI 2020 equation that does not use a race coefficient. Specimen (Source)Anatomical Location / LateralityCollection Method / Volume Collection TimeReceived TimeBloodVenous blood / Bdpnont6902/22/2025 1:27 AM EDT 02/22/2025 1:33 AM EDT Narrative Authorizing ProviderResult TypeResult StatusRefugio Li MDLAB BLOOD ORDERABLES Final ResultPerforming OrganizationAddressCity/State/ZIP CodePhone Number [facility] [address] [place] [address], * ECG 12 lead (02/22/2025 1:23 AM EDT)Specimen (Source)Anatomical Location / LateralityCollection Method / VolumeCollection TimeReceived Time02/22/2025 1:23 AM EDT Narrative [facility] - 02/22/2025 1:39 AM EDT Authorizing ProviderResult TypeResult StatusRefugio Li MDECG ORDERABLESFinal ResultPerforming OrganizationAddressty/State/ZIP CodePhone Number [facility] from Last 3 Months Insurance Care Teams Team MemberRelationshipSpecialtyStart DateEnd Brandy Joseph MD [address] [place] [phone] PCP - GeneralFamily Medicine08/02/20
== END 2025-03-30 19:36 | disposition home or self-care (01) ==
PROVIDERS: PCP Internal Medicine Cardiovascular Disease; Visit Provider Internal Medicine Cardiovascular Disease
DX: G47.33 Obstructive sleep apnea (adult) (pediatric) (principal); G47.30 Sleep apnea, unspecified
CPT/HCPCS: 95810

== ENCOUNTER 2025-04-24 20:42 | Outpatient (OUT) | payer OTHER, SELFPAY ==
--- OUTSIDE RECORDS SUMMARY | 2025-04-24 20:45 | XMS_ITS | Clinical Summary ---
Author Organization [facility] Address [address] [place] [address] Care Team Providers Care Airplane Inspector Name Role Phone Unavailable Primary Care Provider Unavailabl e Social History Tobacco UseTypesPacks/DayYears UsedDateSmoking Tobacco: Never Assessed CommentsUnknownSex and Gender InformationValueDate RecordedSex Assigned at Not on fileLegal XrhXwixwh70/24/2014 10:12 PM EDTGender IdentityNot on file Sexual OrientationNot on file Plan of Treatment Not on file
--- OUTSIDE RECORDS SUMMARY | 2025-04-24 20:46 | XMS_ITS | Clinical Summary ---
Author Organization [facility] Address [address] [place] [address] Care Team Providers Care Business Continuity Strategy Director Name Role Phone Brandy Moulton MD Primary Care Provider Allergies Active AllergyReactionsCriticalityNoted SphcHbhnfamcTgstppm12/16/2019 Other Reaction(s): ulcer NjhxjcotbfQkywgkkgx99/01/2023Sulfamethoxazole-Bmjdrmjbwfgx92/16/2019 Other Reaction(s): vomitting / diarrhea JumrvmdlKnxerdhtx58/01/2023 Medications MedicationSigDispense QuantityRefillsLast FilledStart DateEnd DateStatus allopurinol [...] InformationValueDate RecordedSex Assigned at BirthNot on fileLegal OipNixgck47/15/2023 8:00 PM EDTGender Identity Not on fileSexual OrientationNot on file Last Filed Vital Signs Vital SignReadingTime TakenCommentsBlood Kegpfxhy241/7703/07/2021 12:00 PM EDT Pulse--Temperature--Respiratory Rate--Oxygen Saturation--Inhaled Oxygen Concentration--Ffvxyg504 kg (234 lb)01/01/2023 8:32 AM GDMFljswn196.9 cm (5' 1 ) 10/23/2022 8:29 AM EDTBody Mass Index44.21010/23/2022 8:29 AM EDT Plan of Treatment Not on file Insurance [place]IS[place] P[place]TER [id number] Care Teams Team MemberRelationshipSpecialtyStart DateEnd Brandy Moulton MD [address] [place] [phone] [facility] - [facility]10/23/22
--- OUTSIDE RECORDS SUMMARY | 2025-04-24 20:46 | XMS_ITS | Clinical Summary ---
Author Organization [facility] tem Address [id number] [address] [place] [address] Care Team Providers Care Fire Extinguisher Inspector Name Role Phone Brandy Moulton MD Primary Care Provider [phone] Allergies Active AllergyReactionsCriticalityNoted OaeiSvjweonoKebgsax50/16/2019 Sulfamethoxazole-Gqxfkirdgili57/16/2019 Medications MedicationSigDispense QuantityRefillsLast FilledStart DateEnd DateStatus metFORMIN [...] Problems ProblemNoted DateDiagnosed DateAcute respiratory failure with yjkgygg6302/22/2025 Diabetes mellitus without exllebmpwsib16/16/2019Essential hypertension, benign 08/07/20186984Phxnpzntvzaguf55/16/2019Situational vjxhfufjll09/16/2019 Encounters DateTypeDepartmentCare EymwZtyyjqdsknn80/01/2025 1:21 AM EDT - 02/23/2025 3:[address] [facility] [address] [place] [address] Refugio Li MD Asif, Muhamid M, MD Acute respiratory failure with hypoxia (CMS-HCC) (Primary Dx); Acute on chronic combined systolic and diastolic congestive heart failure (CMS-HCC) Discharge Disposition: Home02/22/2025Travelfrom Last 3 Months Family History Medical HistoryRelationNameCommentsMultiple myelomaBrotherMultiple myelomaMother Breast cancerSisterDiabetesSisterRelationNameStatusCommentsBrotherFatherDeceased MotherDeceasedSister Social History Tobacco UseTypesPacks/DayYears UsedDateSmoking Tobacco: NeverSmokeless Tobacco: NeverAlcohol UseStandard Drinks/WeekCommentsNo0 (1 standard drink = 0.6 oz pure alcohol)[facility] UtilitiesAnswerDate RecordedIn the past 12 months has the [employer]AM[employer], gas, oil, or water LeadCloud threatened to shut off services in your home?No 02/22/2025UDIT-CAnswerDate RecordedFrequency of Alcohol ConsumptionNever 08/07/2018Average Number of DrinksNot on file08/07/2018Frequency of Binge DrinkingNot on file08/07/2018PHQ-2AnswerDate RecordedTotal Zfhmz705 PRAPARE - TransportationAnswerDate RecordedIn the past 12 [...] a part of a household?No5ChildcareAnswerDate RecordedChildcareUnknown 11/03/2018EmploymentAnswerDate EpduqeqbOdxbxsrtgcRphjmxz06/12/2019Hunger ScreeningAnswerDate RecordedWithin the past 12 months we worried whether our food would run out before we got money to buy more.Never True02/22/2025Within the past 12 months the food we bought just didn't last and we didn't have money to get more.Never True02/22/2025Purpose - LifeAnswerDate RecordedPurpose and direction in agfgXheuhlf37/11/2021CommentsNoSex and Gender Information ValueDate RecordedSex Assigned at BirthNot on fileLegal ScjJsxrce77/06/2015 12:07 PM EDTGender IdentityNot on fileSexual OrientationNot on file Last Filed Vital Signs Vital SignReadingTime TakenCommentsBlood Ammzeihf006/7302/23/2025 12:01 PM EDT Xvztx636602/23/2025 12:01 PM ULMKkazcyifhgg91.5 ??C (97.7 ??F)02/23/2025 12:01 PM EDTRespiratory Mdtv710702/23/2025 12:01 PM EDTOxygen Ghoqblrcrr74%02/23/2025 12:01 PM EDTInhaled Oxygen Concentration--Phyybi63.8 kg (213 lb 4.8 oz)02/23/2025 4:41 AM PPZWifdfd338.9 cm (5' 1 )02/22/2025 3:11 AM EDTBody Mass Index40.310 3:11 AM EDT Plan of Treatment Health MaintenanceDue DateLast DoneCommentsStatin Use: Inpcjapxydkkks1956 Depression Twimspckk77/14/1968Adult BMI Follow Up Plan1974DTaP,Tdap and Td Vaccines (1 - Tdap)1975Zoster (Shingles) Vaccine (1 of 2)2006RSV ( or age 60+ yrs) (1 - Risk 60-74 years 1-dose series)2016 Aimgndgkf34Fall Risk Ibaavyqrr94/14/2021OVID-19 Vaccine ( season)/01/2021, 09/27/2020, 09/05/2020Influenza Vaccine 01/23/2025Tobacco Feumdbywq67dult BMI Ovaljpffm87/02/2026 02/23/2025 Medical Devices Not on file Procedures Procedure NamePriorityDate/TimeAssociated DiagnosisCommentsEXTRA TUBES BLUE TOP Rvsqjnw0702/23/2025 4:33 AM EDT EXTRA HYMKXHjxadpy38/02/2025 4:33 AM EDT CBC WITH AUTO UHURTZXWEQHSZiguixp79/02/2025 4:33 AM EDT ANGBDIXSIOtypkri55/02/2025 4:33 AM EDT COMPREHENSIVE METABOLIC WXHBYEcpnvox23/02/2025 4:33 AM EDT TROPONIN I, HIGH KKAWXVQRGXBGYVB96/02/2025 4:33 AM EDT TROPONIN I, HIGH VKRZHCISLNZGNMK27/01/2025 8:37 PM EDT TROPONIN I, HIGH LQZNSKAULFRQUPY74/01/2025 12:44 PM EDT FFRVQAVBHEgpnaqd36/01/2025 12:44 PM EDT IHJYXFLRNRgvxkvh06/01/2025 12:44 PM EDT USMYBBVSPFPTyiginz28/01/2025 12:00 PM EDTTROP I, HIGH SENSITIVITY 3 HOURRoutine 02/22/2025 10:02 AM EDT YTWPLQKBPKJDephkvr32/01/2025 8:00 AM EDTTROP I, HIGH SENSITIVITY 1 HOURSTAT 02/22/2025 2:33 AM EDT XR CHEST 1 KIPZIU2802/22/2025 1:45 AM EDT PM ED CRITICAL NBLROphiunp52/01/2025 1:30 AM EDT UABCRUCKLBTKdgneve02/01/2025 1:29 AM SISWHXFLJOCXCBMciszcc92/01/2025 1:29 AM EDT TROPONIN I, HIGH SENSITIVITY 0 RPEFTPQL59/01/2025 1:27 AM EDT TROPONIN I, HIGH SENSITIVITY 0 MDWXJZLD50/01/2025 1:27 AM EDT HWHIWLMFWGYCN34/01/2025 1:27 AM EDT D-LCPCDBOFV97/01/2025 1:27 AM EDT B-TYPE NATRIURETIC PBQJVOLPBTP99/01/2025 1:27 AM EDT BASIC METABOLIC WFDSWRVHR36/01/2025 1:27 AM EDT CBC WITH AUTO SKGFIVFATMJETGJD88/01/2025 1:27 AM EDT SARS/FLU A+B/RSV BY NAAT/MOLECULAR (M4RT COLLECTION TUBE)STAT1 1:27 AM EDT ECG 12-DTYACSRZ43/01/2025 1:23 AM EDT from Last 3 Months Results * Light Blue Top (02/23/2025 4:33 AM EDT)ComponentValueRef RangeTest Method Analysis TimePerformed AtPathologist SignatureExtra TubeAuto Resulted 02/23/2025 6:03 AM [facility] (Source) Anatomical Location / LateralityCollection Method / VolumeCollection Time Received TimeBloodVenous blood / Pzhlbwh2002/23/2025 4:33 AM EDT1 5:07 AM EDT Narrative Authorizing ProviderResult TypeResult StatusMuhamid M Sharad MDLAB BLOOD ORDERABLESFinal ResultPerforming OrganizationAddressCity/State/ZIP CodePhone Number [facility] [address] * (ABNORMAL) Troponin I, High Sensitivity (02/23/2025 4:33 AM EDT) Only the most recent of3 resultswithin the time period is included. ComponentValueRef RangeTest MethodAnalysis TimePerformed AtPathologist Signature TROPONIN I, HIGH OSSZQZKLYVF495(H)<16 ng/L1 5:36 AM [facility] (Source)Anatomical Location / Laterality Collection Method / VolumeCollection TimeReceived TimeBlood (Other)Venipuncture / Gsbbpbc5502/23/2025 4:33 AM EDT1 5:03 AM EDT Narrative [facility] - 02/23/2025 5:36 AM EDT Elevations of hs-Troponin may be due to causes other than myocardial ischemia. Recommend serial hs-Troponin testing be performed. For the initial evaluation and management of chest pain patients, refer to the algorithms linked below. Emergency Patient: [email or web address] Inpatient: [email or web address] Authorizing ProviderResult TypeResult StatusTaeler Herb ROOFER ASSISTANT-CNPLAB BLOOD ORDERABLESFinal ResultPerforming OrganizationAddressCity/State/ZIP CodePhone Number [facility] [address] [place] [address], * (ABNORMAL) CBC auto differential (02/23/2025 4:33 AM EDT) Only the most recent of2 resultswithin the time period is included. ComponentValueRef RangeTest MethodAnalysis TimePerformed AtPathologist Signature WBC12.0(H)4 - 11 x10E9/L10 5:08 AM EDTPCINCINNATI VA MEDICAL CENTERRBC Count4.623.8 - 5.2 X10E12/L1 5:08 AM [facility]ENTERHemoglobin12.511.7 - 15.5 g/dL02/23/2025 5:08 AM EDCOREY HOSPITALHematocrit37.635 - 47 %02/23/2025 5:08 AM EDTPCINCINNATI VA MEDICAL CENTERMCV8180 - 100 fL02/23/2025 5:08 AM EDTPCINCINNATI VA MEDICAL CENTERMCH27.027 - 34 pg02/23/2025 5:08 AM EDTPCINCINNATI VA MEDICAL CENTERMCHC33.232 - 36 g/dL02/23/2025 5:08 AM [facility]ENTERRDW14.211.5 - 15 %02/23/2025 5:08 AM EDCOREY HOSPITALPlatelet Tkwig127853 - 450 X10E9/L1 5:08 AM EDT [facility]ITALMPV8.97 - 12 fL02/23/2025 5:08 AM EDT [facility]ITALNeutrophils %77.7%02/23/2025 5:08 AM EDT [facility]ITALLymphocytes %15.0%02/23/2025 5:08 AM EDT [facility]ITALMonocytes %6.6%02/23/2025 5:08 AM EDT [facility]ITALEosinophils %0.2%02/23/2025 5:08 AM EDT [facility]ITALBasophils %0.5%02/23/2025 5:08 AM EDT [facility]OSPITALNeutrophils Absolute (A)9.4(H)1.5 - 6.6 10*3/uL02/23/2025 5:08 AM EDCOREY HOSPITALLymphocytes Absolute1.81.0 - 3.5 10*3/uL02/23/2025 5:08 AM EDTPCINCINNATI VA MEDICAL CENTERMonocytes Absolute0.80.0 - 0.9 10*3/uL02/23/2025 5:08 AM [facility]ENTEREosinophils Absolute0.00.0 - 0.4 10*3/uL02/23/2025 5:08 AM [facility] CENTERBasophils Absolute0.10.0 - 0.2 10*3/uL 02/23/2025 5:08 AM [facility] CENTERDifferential Type AUTOMATED JTBODPOXRRPQ54/02/2025 5:08 AM [facility] Specimen (Source)Anatomical Location / LateralityCollection Method / Volume Collection TimeReceived TimeBloodVenous blood / UnknownVenipuncture / Unknown 02/23/2025 4:33 AM EDT1 5:02 AM EDT Narrative Authorizing ProviderResult TypeResult StatusMadison Petr Martel ROOFER ASSISTANT-CNPLAB BLOOD ORDERABLESFinal ResultPerforming OrganizationAddressCity/State/ZIP Code Phone Number [facility] [address] [place] [place] [address], * Magnesium (02/23/2025 4:33 AM EDT) Only the most recent of3 resultswithin the time period is included. ComponentValueRef RangeTest MethodAnalysis TimePerformed AtPathologist Signature MAGNESIUM2.01.8 - 2.6 mg/dL02/23/2025 5:28 AM [facility]pecimen (Source)Anatomical Location / LateralityCollection Method / VolumeCollection TimeReceived TimeBlood (Other)Venipuncture / Pqsnayp3602/23/2025 4:33 AM EDT1 5:03 AM EDT Narrative Authorizing ProviderResult TypeResult StatusMadison Petr Martel ROOFER ASSISTANT-CNPLAB BLOOD ORDERABLESFinal ResultPerforming OrganizationAddressCity/State/ZIP Code Phone Number [facility] [address] [place] [address], * (ABNORMAL) Comprehensive metabolic panel (02/23/2025 4:33 AM EDT)Component ValueRef RangeTest MethodAnalysis TimePerformed AtPathologist SignatureSODIUM 743360 - 146 mmol/L1 5:28 AM [facility] POTASSIUM3.93.5 - 5.0 mmol/L1 5:28 AM [facility] CENTERCHLORIDE10498 - 109 mmol/L1 5:28 AM EDCOREY HOSPITALCARBON UNCJORE8716 - 32 mmol/L1 5:28 AM EDCOREY HOSPITALANION QCT350 - 15 mmol/L1 5:28 AM EDT [facility]ITALBLOOD UREA DDXUFIWG589 - 27 mg/dL02/23/2025 5:28 AM [facility] CENTERCREATININE0.750.40 - 1.00 mg/dL 02/23/2025 5:28 AM [facility]ENTERComment:METHOD TRACEABLE TO IDMS QYRHOTRNAAVRRPK173(H)65 - 99 mg/dL02/23/2025 5:28 AM EDT [facility]ITALCALCIUM9.28.5 - 10.5 mg/dL02/23/2025 5:28 AM [facility] CENTERTOTAL PROTEIN7.06.0 - 8.0 g/dL 02/23/2025 5:28 AM [facility] CENTERALBUMIN3.53.2 - 5.3 g/dL02/23/2025 5:28 AM EDCOREY HOSPITALALKALINE KQGBHXDCWIY5423 - 130 U/L1 5:28 AM [facility]ENTERAST33<=41 U/L1 5:28 AM [facility] ALT60(H)<=31 U/L1 5:28 AM [facility] BILIRUBIN,TOTAL1.10.3 - 1.2 mg/dL02/23/2025 5:28 AM [facility] CENTEREGFR Non-Race Otaebrode14>=60 ml/min/1.73sq.m1 5:28 AM [facility]ENTERComment: eGFR not reported due to non-numeric value for Creatinine. Reported eGFR is based on the CKD-EPI 2020 equation that does not use a race coefficient. Specimen (Source)Anatomical Location / LateralityCollection Method / Volume Collection TimeReceived TimeBlood (Other)Venipuncture / Wxjsxoh9602/23/2025 4:33 AM EDT1 5:03 AM EDT Narrative Authorizing ProviderResult TypeResult StatusMadison Petr Martel ROOFER ASSISTANT-CNPLAB BLOOD ORDERABLESFinal ResultPerforming OrganizationAddressCity/State/ZIP Code Phone Number [address] [place] [address], * Potassium (02/22/2025 12:44 PM EDT)ComponentValueRef RangeTest MethodAnalysis TimePerformed AtPathologist SignaturePOTASSIUM4.13.5 - 5.0 mmol/L1 1:03 PM [facility]ITALpecimen (Source)Anatomical Location / LateralityCollection Method / VolumeCollection TimeReceived Time BloodVenous blood / UnknownVenipuncture / Mpjtxym9402/22/2025 12:44 PM EDT 02/22/2025 12:49 PM EDT Narrative Authorizing ProviderResult TypeResult StatusMuhamkolton Orourke MDLAB BLOOD ORDERABLESFinal ResultPerforming OrganizationAddressCity/State/ZIP CodePhone Number [address] [place] [address], [place] * (ABNORMAL) Troponin I, High Sensitivity 3 Hour (02/22/2025 10:02 AM EDT) ComponentValueRef RangeTest MethodAnalysis TimePerformed AtPathologist SignatureTROPONIN I, HIGH KCPPMLGZUZN340(H)<16 ng/L1 11:11 AM EDT [facility] (Source)Anatomical Location / LateralityCollection Method / VolumeCollection TimeReceived TimeBloodVenous blood / UnknownVenipuncture / Jtkqlli0302/22/2025 10:02 AM EDT1 10:05 AM EDT Narrative [facility] - 02/22/2025 11:11 AM EDT Elevations of hs-Troponin may be due to causes other than myocardial ischemia. Recommend serial hs-Troponin testing be performed. For the initial evaluation and management of chest pain patients, refer to the algorithms linked below. Emergency Patient: [email or web address] Inpatient: [email or web address] Authorizing ProviderResult TypeResult StatusTaeler Herb FITZGERALDN-CNPLAB BLOOD ORDERABLESFinal ResultPerforming OrganizationAddressCity/State/ZIP CodePhone Number [facility] [address] [place] [address], [place] * (ABNORMAL) Troponin I, High Sensitivity 1 Hour (02/22/2025 2:33 AM EDT) ComponentValueRef RangeTest MethodAnalysis TimePerformed AtPathologist SignatureTROPONIN I, HIGH BPXFGSWBVUL45(H)<16 ng/L1 3:02 AM EDT [facility] (Source)Anatomical Location / LateralityCollection Method / VolumeCollection TimeReceived TimeBloodVenous blood / UnknownVenipuncture / Wsuauzl1002/22/2025 2:33 AM EDT1 2:35 AM EDT Narrative [facility] - 02/22/2025 3:02 AM EDT Elevations of hs-Troponin may be due to causes other than myocardial ischemia. Recommend serial hs-Troponin testing be performed. For the initial evaluation and management of chest pain patients, refer to the algorithms linked below. Emergency Patient: [email or web address] Inpatient: [email or web address]/[email or web address] Authorizing ProviderResult TypeResult StatusRefugio Li MDLAB BLOOD ORDERABLES Final ResultPerforming OrganizationAddressCity/State/ZIP CodePhone Number [facility] [address] [place] [address], * X-ray chest 1 view (02/22/2025 1:45 [...] RangeTest MethodAnalysis TimePerformed AtPathologist SignatureTROPONIN I, HIGH CZJHYIZVQYO57<16 ng/L1 2:03 AM [facility] Specimen (Source)Anatomical Location / LateralityCollection Method / Volume Collection TimeReceived TimeBloodVenous blood / Lvccsfp8202/22/2025 1:27 AM EDT 02/22/2025 1:33 AM EDT Narrative Authorizing ProviderResult TypeResult StatusRefugio ROMERO BLOOD ORDERABLES Final ResultPerforming OrganizationAddressCity/State/ZIP CodePhone Number [facility] [address] [place] [address], * SARS/FLU A+B/RSV by NAAT/Molecular (M4RT Collection Tube) (02/22/2025 1:27 AM EDT)ComponentValueRef RangeTest MethodAnalysis TimePerformed AtPathologist SignatureFLU A ZZRQvhnrtlaYmdnvyyf42/01/2025 2:13 AM EDTPCINCINNATI VA MEDICAL CENTERFLU B MZBUdolyfgeMwtqozyl56/01/2025 2:13 AM EDCOREY HOSPITALRSV BY UYZOtsezvlxNhiutkbk01/01/2025 2:13 AM EDT [facility]ARS COV 2 BY PCRNot DetectedNot Detected 02/22/2025 2:13 AM [facility]ITALpecimen (Source) Anatomical Location / LateralityCollection Method / VolumeCollection Time Received TimeSwabNasopharyngeal structure / Qkwgaat1302/22/2025 1:27 AM EDT 02/22/2025 1:33 AM EDT Narrative [facility] - 02/22/2025 2:13 AM EDT The [...] operators who are performing tests using either GeneXGFI Software DX or GeneFive-Thirty systems and is limited to laboratories that [...] repeat. Fact Sheet for Healthcare Providers: ?? https://www.fda.gov/media/623197/download ? Fact Sheet for Patients: ?? https://www.fda.gov/media/216993/download ?? Authorizing ProviderResult TypeResult StatusRefugio Li [facility] HOSPITALICROBIOLOGY - GENERAL ORDERABLESFinal ResultPerforming OrganizationAddressCity/State/ZIP Code Phone Number [facility] [address] [place] [address], * (ABNORMAL) D-Dimer (02/22/2025 1:27 AM EDT)ComponentValueRef RangeTest Method Analysis TimePerformed AtPathologist SignatureD NPMGC624(H)1 - 255 ng/mL 02/22/2025 1:47 AM EDTPROMEDLOS ALAMITOS MEDICAL CENTERComment:Results >255 ng/mL DDU: Results may be indicative [...] BLOOD ORDERABLES Final ResultPerforming OrganizationAddressCity/State/ZIP CodePhone Number [address] [place] [address], [place] * (ABNORMAL) B-type natriuretic peptide (02/22/2025 1:27 AM EDT)ComponentValue Ref RangeTest MethodAnalysis TimePerformed AtPathologist WdjnggtjwMZZ247(H) <=100 pg/mL02/22/2025 2:22 AM [facility]ITALpecimen (Source)Anatomical Location / LateralityCollection Method / VolumeCollection TimeReceived TimeBloodVenous blood / Kayimti2702/22/2025 1:27 AM EDT1 1:33 AM EDT Narrative Authorizing ProviderResult TypeResult StatusRefugio ROMERO BLOOD ORDERABLES Final ResultPerforming OrganizationAddressty/State/ZIP CodePhone Number [address] [place] [address], [place] * (ABNORMAL) Basic Metabolic Panel (02/22/2025 1:27 AM EDT)ComponentValueRef RangeTest MethodAnalysis TimePerformed AtPathologist UjgnxmvruRRHOLA098169 - 146 mmol/L1 1:51 AM EDTPCINCINNATI VA MEDICAL CENTERPOTASSIUM 3.83.5 - 5.0 mmol/L1 1:51 AM EDTPCINCINNATI VA [facility]ICAL [facility]ENTER YPYSUAVP88861 - 109 mmol/L1 1:51 AM EDTPCINCINNATI VA MEDICAL CENTERCARBON BJVAYWD9217 - 32 mmol/L1 1:51 AM EDTPCINCINNATI VA MEDICAL CENTERANION GAP95 - 15 mmol/L1 1:51 AM [facility]ENTERBLOOD UREA VEAQKXUX525 - 27 mg/dL02/22/2025 1:51 AM [facility]ENTERCREATININE0.780.40 - 1.00 mg/dL 02/22/2025 1:51 AM [facility] CENTERComment:METHOD TRACEABLE TO IDMS SVYPUMSUBBVAZDB334(H)65 - 99 mg/dL02/22/2025 1:51 AM EDT [facility]ITALCALCIUM8.78.5 - 10.5 mg/dL02/22/2025 1:51 AM [facility] CENTEREGFR Non-Race Qsrjimcpa16>=60 ml/min/1.73sq.m1 1:51 AM [facility] Comment: eGFR not reported due to non-numeric value for Creatinine. Reported eGFR is based on the CKD-EPI 2020 equation that does not use a race coefficient. Specimen (Source)Anatomical Location / LateralityCollection Method / Volume Collection TimeReceived TimeBloodVenous blood / Lxhvrbh6502/22/2025 1:27 AM EDT 02/22/2025 1:33 AM EDT Narrative Authorizing ProviderResult TypeResult StatusRefugio Li MDLAB BLOOD ORDERABLES Final ResultPerforming OrganizationAddressCity/State/ZIP CodePhone Number [facility] [address] [place] [address], * ECG 12 lead (02/22/2025 1:23 AM EDT)Specimen (Source)Anatomical Location / LateralityCollection Method / VolumeCollection TimeReceived Time02/22/2025 1:23 AM EDT Narrative [facility] - 02/22/2025 1:39 AM EDT Authorizing ProviderResult TypeResult StatusRefugio Li MDECG ORDERABLESFinal ResultPerforming OrganizationAddressty/State/ZIP CodePhone Number [facility] from Last 3 Months Insurance Care Teams Team MemberRelationshipSpecialtyStart DateEnd Brandy Joseph MD [address] [place] [id number] PCP - GeneralFamily Medicine08/02/20
--- OUTSIDE RECORDS SUMMARY | 2025-04-24 20:46 | XMS_ITS | Clinical Summary ---
Author Organization [facility] Address [address] [address] Care Team Providers Care Manufacturing Engineering Technician Name Role Phone Brandy Moulton MD Primary Care Provider [phone] Allergies Active AllergyReactionsCriticalityNoted DpsbTqoeoynmDbhakmfSczkj70/16/2019 Other Reaction(s): ulcer WmrujwkphbWidpaklit62/01/2023Sulfamethoxazole-TrimethoprimNausea And Vomiting 08/07/2018 Other Reaction(s): vomitting / diarrhea NbznqwbzRaxxlulbx11/01/2023 Medications MedicationSigDispense QuantityRefillsLast FilledStart DateEnd DateStatus allopurinol (Zyloprim) 300 mg tablet Take 300 mg by mouth in the morning.Active gentamicin (Garamycin) 0.3 % ophthalmic solution 1 drop four times daily.5Active hydroCHLOROthiazide (HYDRODiuril) 25 mg tablet Take 25 mg by mouth in the morning.07/30/2018Active HYDROcodone-acetaminophen ([place]) 5-325 mg tablet Take 1 tablet by [...] Do not crush or chew. 30 tablet 110ctive valsartan (Diovan) 40 mg tablet Indications:Chronic combined systolic and diastolic heart failure (CMS/HCC)Take 1 tablet (40 mg) by mouth in the morning. 30 tablet 1105002/10/2026ctive furosemide (Lasix) 40 mg tablet Take 40 mg by mouth in the morning.Active spironolactone (Aldactone) 25 mg tablet Take 25 mg by mouth in the morning.Active aspirin 81 mg EC tablet Indications:Chronic combined systolic and diastolic heart failure (CMS/HCC)Take 1 tablet (81 mg) by mouth in the morning. 30 tablet ctive Active Problems ProblemNoted DateDiagnosed DateChronic combined systolic and diastolic heart azianfr2104/02/2025ute respiratory failure with tdkyobv6402/22/2025SVT (supraventricular tachycardia)02/03/2025Murmur, heart02/03/2025bnormal EKG 02/03/2025Sleep apnea02/03/2025lass 2 severe obesity due to excess calories with serious comorbidity and body mass index (BMI) of39.0 to 39.9 in adult 5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)02/03/2025 Diabetes mellitus without hkkgzputzxye59/16/2019Essential egyrxglmuhwr65/16/2019 Hszpwqvkwxsmrc65/16/2019Situational kehdzodlou56/16/2019 Encounters DateTypeDepartmentCare NaykCnymmmfqciz93/07/2025 9:00 AM ESTOffice Visit [facility] [place] [address] [place] [address] Shala Mcleod MD Chronic combined systolic and diastolic heart failure (CMS/HCC) (Primary Dx); Abnormal EKG; SVT (supraventricular tachycardia); Essential hypertension; Hyperlipidemia, unspecified hyperlipidemia type; 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 [address] [place] [facility] [place] [address] Deepika Lino MA 03/07/2025Orders Only [facility] [address] [place] [address] Karol Herrera MA Benign hypertensive heart disease with heart failure (CMS/HCC) (Primary Dx); Mixed ajuqqmlbonwgql86/14/2025Results Follow-Up [facility] [address] [place] [address] Shala Mcleod MD Comprehensive metabolic panel02/24/2025Telephone [facility] [address] [place] [facility] [place] [address] Rhonda Dhillon MA 02/23/2025Orders Only [facility] [address] [place] [facility] [place] [address] Brian Hopper MD 02/10/2025 11:[address] [address] [place] [address] Shala Mcleod MD SVT (supraventricular tachycardia) (Primary Dx); Chronic combined systolic and diastolic heart failure (CMS/HCC)02/10/2025Orders Only [facility] [address] [place] [address] Brian Hopper MD 02/03/2025 10: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) ([facility])from Last 3 Months Family History RelationNameStatusCommentsFatherDeceasedMotherDeceased Social History Tobacco UseTypesPacks/DayYears UsedDateSmoking Tobacco: NeverSmokeless Tobacco: Never Tobacco Cessation:Counseling Given: Not Answered Alcohol UseStandard Drinks/WeekCommentsNot Currently0 (1 standard drink = 0.6 oz pure alcohol)CommentsUnknownSex and Gender InformationValueDate Recorded Sex Assigned at AlbxaRfplds29/04/2025 1:47 PM EDTLegal UaiQoqext45/15/2025 1:48 PM EDTGender EepqfywqSwvbzr21/04/2025 1:47 PM EDTSexual OrientationHeterosexual or Rrvlcqtb29/04/2025 1:47 PM EDT Last Filed Vital Signs Vital SignReadingTime TakenCommentsBlood Gkqbgrxz355/7103/31/2025 8:55 AM EST Dqyas723003/31/2025 8:55 AM ESTTemperature--Respiratory Rate--Oxygen Djjctbdqya72% 03/31/2025 8:55 AM ESTInhaled Oxygen Concentration--Eramoo63.6 kg (213 lb) 03/31/2025 8:55 AM CZEGlohhm922.9 cm (5' 1 )03/31/2025 8:55 AM ESTBody Mass Index40.25105/31/2024 8:55 AM EST Plan of Treatment DateTypeDepartmentCare Team (Latest Contact Info)Vjbcqhurwwr91/22/2026 9:40 AM ESTOffice Visit [facility] [address] [place] [address] Shala Mcleod MD [address] [place] [address] Health MaintenanceDue DateLast DoneCommentsCT Ntwmffqjxvdm1956olonoscopy 1956Diabetes: Hemoglobin A1C1956FOBT1956Medicare Annual Wellness (AWV)1955 1137Ygkdqjakyxhxv1956Diabetes: Retinopathy Screening 1966Depression Vhntwsvtx36/14/1968Diabetes: Urine Protein Screening 1975Pneumococcal Vaccine: 50+ Years (1 of 2 - PCV)1975Adult Tetanus 1978Zoster Vaccines (1 of 2)05/07/20063967Sbddacgrd39Fall Risk Medmtnlav19/14/1657BEI49/29//OVID-19 Vaccine ( - season)/01/2021, 09/27/2020, 09/05/2020Influenza Vaccine (#1) 5Colorectal Cancer Nydoxqjcz71/29/2026FIT-DNA02/20//HIB VaccinesAged OutNo longer eligible based on patient's [...] heart failure (CMS/HCC) ECG [address] DDNLXLQZOHhaxhae95/19/2025 11:09 AM EDT SVT (supraventricular tachycardia) COMPLETE TRANSTHORACIC ECHO (TTE) W/WO IMAGING AGENT, STRAIN, 3D, BUBBLE STUDY Ndkjtax4902/10/2025 11:00 AM EDTfrom Last 3 Months Results [...] Time Received Time Narrative Authorizing ProviderResult TypeResult StatusShala LUNA ORDERABLESFinal Result * Complete Echo (TTE) w/wo Imaging Agent, Strain, 3D, Bubble Study (02/10/2025 11:00 AM EDT)Anatomical RegionLateralityModalityUltrasound Narrative Authorizing ProviderResult TypeResult StatusHistorical Provider MDCV ECHO PROCEDURESFinal Result from Last [address] [place] [id number] Care Teams Team MemberRelationshipSpecialtyStart DateEnd Brandy Moulton MD [address] [place] [phone] PCP - GeneralFamily Medicine01/09/25
== END 2025-04-24 20:43 | disposition home or self-care (01) ==
PROVIDERS: PCP Internal Medicine Cardiovascular Disease; Visit Provider Internal Medicine Cardiovascular Disease
DX: G47.33 Obstructive sleep apnea (adult) (pediatric) (principal); G47.11 Idiopathic hypersomnia with long sleep time
CPT/HCPCS: 95811